=== PATIENT | male | born 1970 | race Caucasian/White ===

== ENCOUNTER 2018-05-17 20:45 | Inpatient (IN) | payer OTHER ==
[~2018-05-17] VITALS: Ht 182.9 cm; Wt 90.3 kg
--- NOTE | 2018-05-17 21:22 | ED GI/GU/ABDOMINAL COMPLAINT ---
History of Present Illness General Chief Complaint: Abdominal Pain/Flank Pain Stated Complaint: R SIDE PAIN Source: patient Exam Limitations: no limitations Vital Signs & Intake/Output Vital Signs & Intake/Output Vital Signs Date Time Temp Pulse Resp B/P B/P Pulse O2 O2 Flow FiO2 Mean Ox Delivery Rate 05/18 0152 97.5 125 18 178/90 92 05/18 0137 Room Air 05/18 0019 99.3 100 18 160/85 95 Room Air 05/17 2229 98.4 104 18 164/99 99 Room Air 05/17 2109 99.1 110 18 171/108 99 Room Air ED Intake and Output 05/18 0000 05/17 1200 Intake Total 1000 Output Total Balance 1000 Intake, IV 1000 Intake, Oral 0 Patient 200 lb Weight Weight Reported by Patient Measurement Method Allergies Coded Allergies: No Known Allergies (05/17/18) Triage Note: SEE NURSES NOTES Triage Nurses Notes Reviewed? yes Onset: Gradual Duration: constant Quality/Severity: aching, sharpness, severe Severity Numbers: 10 Location: epigastric Radiation: back HPI: Patient is a 47-year-old male with a past medical history of coronary artery disease myocardial infarction pancreatitis cervical arthritis who states that for the past month patient has been taking significant amounts of ibuprofen for his neck discomfort and pain patient states that last night he ate chicken and broccoli and this morning he woke up with gradual onset of persistent epigastric pain with radiation to the back and persistent nausea and vomiting. Patient is intolerant of by mouth intake. Last bowel movement was yesterday. Denies any significant alcohol use denies any fever but does have chills denies any chest pain arm pain jaw pain States pancreatitis is due to per history of cholesterol (Erick Mchugh) Reconcile Medications Amlodipine Besylate (Norvasc) (Unknown Strength) TABLET (Unknown Dose) PO DAILY BP (Reported) Aspirin (Ecotrin*) 81 MG TABLET.DR 1 TAB PO DAILY HEART/BLOOD (Reported) Carboxymethylcellulose Sodium (Lubricant Eye Drops) (Unknown Strength) DROPS ( Unknown Dose) OU AD PRN BOTH EYES (Reported) Cholecalciferol (Vitamin D3) (Vitamin D) (Unknown Strength) TABLET (Unknown Dose) PO DAILY SUPPLEMENT (Reported) Fenofibrate,Micronized (Fenofibrate) (Unknown Strength) CAPSULE (Unknown Dose) PO DAILY CHOLESTEROL/TRIGLYCERIDES (Reported) Ibuprofen 800 MG TABLET 1 TAB PO TID PAIN/INFLAMMATION (Reported) Lorazepam (Ativan) 0.5 MG TABLET (Unknown Dose) PO PRN ANXIETY (Reported) Metoprolol Succinate (Unknown Strength) TAB (Unknown Dose) PO DAILY HEART/BP (Reported) Olmesartan Medoxomil (Benicar) (Unknown Strength) TABLET (Unknown Dose) PO DAILY BP (Reported) Rosuvastatin Calcium (Crestor) (Unknown Strength) TABLET (Unknown Dose) PO DAILY CHOLESTEROL (Reported) (Sebastian Mcfarland MD) Past History Travel History Traveled to [place] past 21 day No Medical History Any Pertinent Medical History? see below for history Cardiovascular: CAD Gastrointestinal: pancreatitis Surgical History Surgical History: non-contributory Psychosocial History What is your primary language Icelandic Tobacco Use: Quit >30 days ago ETOH Use: denies use Illicit Drug Use: denies illicit drug use Family History Hx Contributory? No (Erick Mchugh) Review of Systems Review of Systems Constitutional: Reports: no symptoms. EENTM: Reports: no symptoms. Respiratory: Reports: no symptoms. Cardiovascular: Reports: no symptoms. GI: Reports: see HPI, abdominal pain. Genitourinary: Reports: no symptoms. Musculoskeletal: Reports: no symptoms. Skin: Reports: no symptoms. Neurological/Psychological: Reports: no symptoms. Hematologic/Endocrine: Reports: no symptoms. Immunologic/Allergic: Reports: no symptoms. All Other Systems: Reviewed and Negative (Erick Mchugh) Physical Exam Physical Exam General Appearance: moderate distress, DIAPHORETIC Head: atraumatic Eyes: Bilateral: normal appearance. Ears, Nose, Throat, Mouth: hearing grossly normal Neck: normal inspection Respiratory: normal breath sounds, chest non-tender, no respiratory distress Cardiovascular: tachycardia Gastrointestinal: soft, tenderness Extremities: normal range of motion Neurologic/Psych: no motor/sensory deficits, awake, alert Skin: intact, normal color, warm/dry Core Measures ACS in differential dx? No Sepsis Present: No Sepsis Focused Exam Completed? No (Erick Mchugh) Progress Differential Diagnosis: AAA, AMI, appendicitis, biliary colic, bowel obstruction , colon cancer, cholecystitis, diverticulitis, epididymitis, esophageal varices, gastritis, hepatitis, hernia, hemorrhoids, ischemic bowel, inflamm bowel dis, [place] tear, orchitis, pancreatitis, prostatitis, peptic ulcer, PUD/GERD, perforated viscous, pyelonephritis, SBO, testicular torsion, ureterolithiasis, urinary retention, urethritis, UTI/pyelo Plan of Care: Orders Procedure Date/time Status Nothing by Mouth 05/18 B Active CBC WITHOUT DIFFERENTIAL 05/18 06 Active BASIC ELECTROLYTES PLUS BUN&CR 05/18 06 Active Pathway - chart 05/18 0208 Active Pathway - chart 05/18 0205 Active Weight 05/18 0132 Complete Vital Signs 05/18 0132 Active Teach/Educate 05/18 013 Active Pain Treatment and Response 05/18 132 Active Nutritional Intake, Monitor 05/18 013 Active Isolation 05/18 0132 Active Intake & Output 05/18 0132 Active Patient Care Conference 05/182 Active Activity/Ambulation 05/18 132 Active BLOOD CULTURE 05/18 0026 Active LACTIC ACID 05/18 0022 Complete US-LIMITED ABDOMEN 05/18 UNK Active VTE Mechanical Prophylaxis 05/18 UNK Active Patient Data 05/17 2352 Active Add-on Test (ER Only) 05/17 2343 Active OXYGEN SETUP (GEN) 05/17 2338 Active Saline Lock 05/17 2338 Active Admit to inpatient 05/17 2338 Active Vital Signs 05/17 2338 Active Activity/Ambulation 05/17 2338 Active Code Status 05/17 2338 Active Add-on Test (ER Only) 05/17 2158 Active LIPID PANEL 05/17 2150 Complete ETHANOL 05/17 215 Complete TROPONIN LEVEL 05/17 2122 Complete LIPASE 05/17 212 Complete LACTIC ACID 05/17 2122 Complete COMPREHENSIVE METABOLIC PANEL 05/17 2122 Complete CBC WITHOUT DIFFERENTIAL 05/17 2122 Complete AMYLASE 05/17 2122 Complete Intake & Output 05/17 2111 Active EKG 05/17 2057 Active Current Medications Sig/Inge Start time Last Medication Dose Stop Time Status Admin Heparin Sodium 5,000 UNIT Q8 05/18 06 AC (Porcine) Hydromorphone HCl 0.5 MG Q4P PRN 05/18 0215 AC 05/18 (Dilaudid) 216 Lactated Ringer's 1,000 ML 200 MLS/HR 05/18 215 UNir (Lactated Ringers) 05/19 216 Morphine Sulfate 2 MG Q6P PRN 05/18 021 AC (Morphine) Laboratory Tests 05/18/18 0045: Lactic Acid 0.7 05/17/18 2150: Anion Gap 16, Estimated GFR > 60, BUN/Creatinine Ratio 21.4, Glucose 118 H, Lactic Acid 2.6 H, Calcium 10.4 H, Total Bilirubin 0.9, AST 199 H, ALT 234 H , Alkaline Phosphatase 98, Troponin I 0.01, Total Protein 7.4, Albumin 4.8, Globulin 2.6, Albumin/Globulin Ratio 1.8, Triglycerides 82, Cholesterol 248 H, LDL Cholesterol, Calc 151 H, HDL Cholesterol 81 H, Cholesterol/HDL Ratio 3, Amylase 376 H, Lipase 9711 H, CBC w Diff NO MAN DIFF REQ, RBC 4.96, MCV 94.1 H, MCH 31.5 H, MCHC 33.5, RDW 13.8, MPV 8.8, Gran % 87.3 H, Lymphocytes % 6.7 L, Monocytes % 5.0, Eosinophils % 0.8, Basophils % 0.2, Absolute Granulocytes 9.1 H, Absolute Lymphocytes 0.7 L, Absolute Monocytes 0.5, Absolute Eosinophils 0.1, Absolute Basophils 0, Serum Alcohol < 10.0 Microbiology 05/18 45 BLOOD: Blood Culture - RECD 05/18 35 BLOOD: Blood Culture - RECD Patient upon initial presentation was noted to be diaphoretic in distress patient was given multiple pain medications and nausea medications with mild relief of symptoms patient has concerning pancreatitis discussed admission with patient who agrees and has no questions. Blood work does identify the patient has elevated LFTs however CAT scan shows no concerns of cholecystitis or gallstones Patient denies any alcohol use Diagnostic Imaging: Viewed by Me: CT Scan. Radiology Impression: acute abnormality Initial ED EKG: normal p-waves, 106 BPM Comments: PATIENT: ALAN BYNUM PRESENT AGE: 47 PATIENT ACCOUNT NO: [id number] : 71 LOCATION: [facility] ORDERING PHYSICIAN: Erick BLACKBURN SERVICE DATE: 05/17/18 EXAM TYPE: CAT - CT ABD & PELVIS W IV CONTRAST EXAMINATION: CT ABDOMEN AND PELVIS WITH CONTRAST CLINICAL INFORMATION: Epigastric pain. Nausea, vomiting. COMPARISON: March 17, 2016. TECHNIQUE: Contiguous axial thin section helical images of the abdomen and pelvis were performed following the administration of 98 mL of intravenous Optiray 320. The data set was reformatted in the coronal and sagittal planes and reviewed on an independent workstation. DLP: 592 mGy-cm. FINDINGS: The visualized lung bases are clear. The visualized portions of the heart are unremarkable. The liver is of normal size and diffuse decreased attenuation without focal lesions nor intrahepatic biliary ductal dilation. A normal gallbladder is identified. There is no wall thickening or discernible pericholecystic fluid. The spleen and adrenal glands are unremarkable. The pancreas is edematous without demonstrable mass lesions or ductal dilation. There is marked peripancreatic stranding and a small amount of free fluid. This is not drainable. There are scattered peripancreatic lymph nodes that are not pathologically enlarged. Both kidneys are of normal size and attenuation without hydronephrosis or nephrolithiasis. There is a right extrarenal pelvis. Following the administration of IV contrast, prompt symmetric nephrograms are displayed. There is no abdominal free fluid. There is neither mesenteric nor retroperitoneal lymphadenopathy. Normal unopacified loops of small and large bowel are identified. A normal appendix is identified. There is no pelvic free fluid. The urinary bladder is unremarkable. There is neither pelvic nor inguinal lymphadenopathy. Bone windows: Neither sclerotic nor lytic bone lesions are identified. IMPRESSION: Edematous pancreas with adjacent fat stranding and free fluid with peripancreatic lymph nodes indicative of pancreatitis. No drainable fluid collections. No ductal calculi. Extensive hepatic steatosis. DICTATED BY: Fito Sebastian MD DATE/TIME DICTATED:05/17/182324 PLATE FURNACE OPERATOR:TABITHA (Erick Mchugh) Departure Departure Disposition: STILL A PATIENT Condition: Stable Clinical Impression Primary Impression: Pancreatitis Secondary Impressions: Transaminitis Referrals: Grzegorz Dumont MD (PCP/Family) Departure Forms: Customer Survey General Discharge Information Admission Note Spoke With: Amparo Vieira MD Documentation of Exam: Documentation of any treatments & extenuating circumstances including Concerns Regarding Discharge (functional status, medication knowledge or non-compliance, living conditions, etc.) that warrant an admission rather than observation: [ Patient requires gastroenterology consultation IV pain medications IV anti- emetics, repeat labs IV fluids ultrasound of the right upper quadrant] (Erick Mchugh) PA/SHINGLE WEAVER Co-Sign Statement Statement: ED Attending supervision documentation- x I saw and evaluated the patient. I have also reviewed all the pertinent lab results and diagnostic results. I agree with the findings and the plan of care as documented in the PA's/SHINGLE WEAVER's documentation. RUQ tenderness, pancreatitis [] I have reviewed the ED Record and agree with the PA's/SHINGLE WEAVER's documentation. [] Additions or exceptions (if any) to the PAs/SHINGLE WEAVER's note and plan are summarized below: [] (Bruna MICHELLE,Sebastian)
[2018-05-17] MEDS ORDERED: FENOFIBRATE134 M1 PO (21:45)
[2018-05-17] MEDS ORDERED: METOPROLOL SUCC25 M1 PO (21:45)
[2018-05-17] MEDS ORDERED: BENICAR20 M1 PO (21:45)
[2018-05-17] MEDS ORDERED: CRESTOR5 M1 PO (21:46)
[2018-05-17] MEDS ORDERED: ASPIRIN EC81 M1 PO (21:46)
[2018-05-17] MEDS ORDERED: NORVASC5 M1 PO (21:46)
[2018-05-17] MEDS ORDERED: IBUPROFEN800 M1 PO (21:47)
[2018-05-17] MEDS ORDERED: LUBRICANT EYE D15 ML OU (21:48)
[2018-05-17] MEDS ORDERED: VITAMIN D1000 UNIT PO (21:48)
[2018-05-17 22:01] LABS: ABSOLUTE BASOPHIL COUNT 0 /CUMM (0.0-0.2); ABSOLUTE EOSINOPHIL COUNT 0.1 /CUMM (0.0-0.7); ABSOLUTE GRANULOCYTE CT 9.1 /CUMM (1.4-6.5); ABSOLUTE LYMPH COUNT 0.7 /CUMM (1.2-3.4); ABSOLUTE MONOCYTE COUNT 0.5 /CUMM (0.10-0.60); BASOPHIL % 0.2 % (0.0-2.0); EOSINOPHIL % 0.8 % (0-5); HEMATOCRIT 46.7 % (42-52); MEAN CORPUSCULAR HGB 31.5 PG (27.0-31.0); MEAN CORPUSCULAR HGB CONC 33.5 G/DL (33.0-37.0); MEAN CORPUSCULAR VOLUME 94.1 FL (80.0-94.0); MEAN PLATELET VOLUME 8.8 FL (7.4-10.4); PLATELET COUNT 183 /CUMM (130-400); RBC DISTRIBUTION WIDTH 13.8 % (11.5-14.5); RED BLOOD CELL CT 4.96 /CUMM (4.70-6.10); WHITE BLOOD CELL COUNT 10.4 /CUMM (4.8-10.8)
[2018-05-17 22:25] LABS: GRANULOCYTE % 87.3 % (42.2-75.2)
--- NOTE | 2018-05-17 23:34 | CT SCAN REPORT ---
EXAMINATION: CT ABDOMEN AND PELVIS WITH CONTRAST CLINICAL INFORMATION: Epigastric pain. Nausea, vomiting. COMPARISON: March 17, 2016. TECHNIQUE: Contiguous axial thin section helical images of the abdomen and pelvis were performed following the administration of 98 mL of intravenous Optiray 320. The data set was reformatted in the coronal and sagittal planes and reviewed on an independent workstation. DLP: 592 mGy-cm. FINDINGS: The visualized lung bases are clear. The visualized portions of the heart are unremarkable. The liver is of normal size and diffuse decreased attenuation without focal lesions nor intrahepatic biliary ductal dilation. A normal gallbladder is identified. There is no wall thickening or discernible pericholecystic fluid. The spleen and adrenal glands are unremarkable. The pancreas is edematous without demonstrable mass lesions or ductal dilation. There is marked peripancreatic stranding and a small amount of free fluid. This is not drainable. There are scattered peripancreatic lymph nodes that are not pathologically enlarged. Both kidneys are of normal size and attenuation without hydronephrosis or nephrolithiasis. There is a right extrarenal pelvis. Following the administration of IV contrast, prompt symmetric nephrograms are displayed. There is no abdominal free fluid. There is neither mesenteric nor retroperitoneal lymphadenopathy. Normal unopacified loops of small and large bowel are identified. A normal appendix is identified. There is no pelvic free fluid. The urinary bladder is unremarkable. There is neither pelvic nor inguinal lymphadenopathy. Bone windows: Neither sclerotic nor lytic bone lesions are identified. IMPRESSION: Edematous pancreas with adjacent fat stranding and free fluid with peripancreatic lymph nodes indicative of pancreatitis. No drainable fluid collections. No ductal calculi. Extensive hepatic steatosis.
--- NOTE | 2018-05-17 23:57 | History & Physical ---
Yary Toney MD 05/17/18 2308: General Information and HPI MD Statement: I have seen and personally examined MISAALAN Halie CALDERON and documented this H&P. The patient is a 47 year old M who presented with a patient stated chief complaint of right abdominal and flank pain, nausea and vomiting Source of Information: patient, family Exam Limitations: no limitations History of Present Illness: This is a 47-year-old male with a past medical history significant for hypertension, coronary artery disease status post RI in 2016 with placement of one stent, medicine-induced pancreatitis 2 years ago, cervical arthritis that comes to see us for complaints of one days worth of right abdominal and flank pain. The patient states that when he woke up in the morning the abdominal pain started at 6 AM. The pain was sharp and in the right side, at the worst 10/10. He also stated that he had associated bloating. The previous night, he had eaten chicken and broccoli, nothing out of the norm for him. He had also had 2 slices of pizza late at night. In the morning he had one yogurt around the time that the pain began. At about 11:00, despite the pain, he had another 2 slices of pizza. He states that the pain radiates to the back. He also had associated nausea and vomiting and threw up 2 times at home. He denies any blood in the vomitus. He denies any diarrhea, states that he has not had a bowel movement since yesterday. He has had no appetite and has not eaten since the pizza at 11 AM. The patient states that he has been taking high-dose ibuprofen for neck pain for the past week, 800 mg 3 times a day which was prescribed from his primary care physician for his cervical arthritis. Additionally, the patient states that he was recently switched one month ago from rosuvastatin to atorvastatin. Patient states that he is supposed to have spinal surgery at some point soon. Patient denies any fever, chills, pain elsewhere in the body, dizziness, cough, lower extremity edema, dysuria. He denies chest pain but does admit to some palpitations that he had while waiting in the [facility] triage. The patient is a past smoker, quit in 2016, previously smoked 1 pack per day for 25 years. He denies any herbal medications, drugs, alcohol. He denies any travel or sick contacts. His PCP is Dr. German. Allergies/Medications Allergies: Coded Allergies: No Known Allergies (05/17/18) Compliance With Home Meds: GOOD Past History Travel History Traveled to [place] past 21 day No Medical History Cardiovascular: CAD Gastrointestinal: pancreatitis Surgical History Surgical History: non-contributory Past Family/Social History Family History Relations & Conditions if any Family history was reviewed; no changes noted. Psychosocial History Smoking Status: Former Smoker ETOH Use: denies use Illicit Drug Use: denies illicit drug use Review of Systems Review of Systems Constitutional: Reports: no symptoms. EENTM: Reports: no symptoms. Cardiovascular: Reports: palpitations. Respiratory: Reports: no symptoms. GI: Reports: abdominal pain, nausea, vomiting. Genitourinary: Reports: no symptoms. Musculoskeletal: Reports: neck pain. Skin: Reports: no symptoms. Hematologic/Endocrine: Reports: no symptoms. Immunologic/Allergic: Reports: no symptoms. Exam & Diagnostic Data Last 24 Hrs of Vital Signs/I&O Vital Signs Date Time Temp Pulse Resp B/P B/P Pulse O2 O2 Flow FiO2 Mean Ox Delivery Rate 05/18 0152 97.5 125 18 178/90 92 05/18 0137 Room Air 05/18 0019 99.3 100 18 160/85 95 Room Air 05/17 2229 98.4 104 18 164/99 99 Room Air 05/17 2109 99.1 110 18 171/108 99 Room Air Intake & Output 05/18 0800 05/18 0000 05/17 1600 Intake Total 1000 1000 Output Total Balance 1000 1000 Intake, IV 1000 1000 Intake, Oral 0 Patient 200 lb 200 lb Weight Weight Reported by Patient Reported by Patient Measurement Method Physical Exam General Appearance Alert, Oriented X3, Cooperative, No Acute Distress Skin No Rashes, No Breakdown, No Significant Lesion Skin Temp/Moisture Exam: Warm/Dry Sepsis Skin Exam (color): Normal for Ethnicity HEENT Atraumatic, PERRLA, EOMI, Mucous Membr. moist/pink Neck Supple, No JVD Cardiovascular Regular Rate, Normal S1, Normal S2, No Murmurs Lungs Clear to Auscultation, Normal Air Movement Abdomen Normal Bowel Sounds, Soft, No Hepatospenomegaly, No Masses, patient has pain on deep palpation Neurological Normal Speech Extremities No Clubbing, No Cyanosis, No Edema, Normal Pulses Vascular Normal Pulses, Pulses Symmetrical Last 24 Hrs of Labs/Scooter: Laboratory Tests 05/18/18 0310: Troponin I 0.02 05/18/18 0045: Lactic Acid 0.7 05/17/18 2150: Anion Gap 16, Estimated GFR > 60, BUN/Creatinine Ratio 21.4, Glucose 118 H, Lactic Acid 2.6 H, Calcium 10.4 H, Total Bilirubin 0.9, AST 199 H, ALT 234 H , Alkaline Phosphatase 98, Troponin I 0.01, Total Protein 7.4, Albumin 4.8, Globulin 2.6, Albumin/Globulin Ratio 1.8, Triglycerides 82, Cholesterol 248 H, LDL Cholesterol, Calc 151 H, HDL Cholesterol 81 H, Cholesterol/HDL Ratio 3, Amylase 376 H, Lipase 9711 H, CBC w Diff NO MAN DIFF REQ, RBC 4.96, MCV 94.1 H, MCH 31.5 H, MCHC 33.5, RDW 13.8, MPV 8.8, Gran % 87.3 H, Lymphocytes % 6.7 L, Monocytes % 5.0, Eosinophils % 0.8, Basophils % 0.2, Absolute Granulocytes 9.1 H, Absolute Lymphocytes 0.7 L, Absolute Monocytes 0.5, Absolute Eosinophils 0.1, Absolute Basophils 0, Serum Alcohol < 10.0 Microbiology 05/18 45 BLOOD: Blood Culture - RECD 05/18 35 BLOOD: Blood Culture - RECD Assessment/Plan Assessment: This is a 47-year-old male with a past medical history significant for hypertension, coronary artery disease status post RI in 2016 with placement of one stent, medicine-induced pancreatitis 2 years ago, cervical arthritis that comes to see us for complaints of one days worth of right abdominal and flank pain. Patient has not eaten anything out of the norm except for some pizza, has no sick contacts, no recent travel. The patient has recently been on high-dose ibuprofen and one month ago switched from rosuvastatin to atorvastatin. His previous bout of pancreatitis was from an unknown medication. The patient is a past smoker. In the ED, temperature 99.1, heart rate 110, respiratory rate 18, blood pressure 171/108 which decreased to 164/99, 98% oxygen saturation on room air. EKG showed rate of 104, Q waves in leads 2, 3, aVF, QTC 436. Labs showed WBC 10.4, hemoglobin 15.6, platelets 23, sodium 136, potassium 4.4, normal creatinine, calcium, negative troponin, AST 199, a LT 234, lactic acid 2.6 which decreased to 0.7 after fluids. Tox was negative for alcohol. Cholesterol was 248, LDL 151, HDL 81, amylase 376, lipase 9711. CT abdomen and pelvis showed hepatic steatosis, edematous pancreas with adjacent fat stranding and free fluid with peripancreatic lymph nodes, no fluid collection, no suggestion of necrotic areas. In the ED, patient received Phenergan, Zofran, Reglan for nausea, Dilaudid 1 mg Assessment -Abdominal pain and nausea/vomiting secondary to pancreatitis: This could be secondary to medication although his switch to a new statin was 1 month ago, possibility for statin-induced pancreatitis does exist. The patient does have elevated LFTs so possibility does exist for gallstone pancreatitis. However this is also unlikely as the patient's bilirubin is normal. She does have a history of hyperlipidemia which could be the cause of his pancreatitis. Patient 's calcium is normal. -Tachycardia with a history of RI status post stent placement: EKG showed old Q waves and no other abnormalities. However patient was found to have heart rate up to 125 with blood pressure of 170/90, no symptoms. Plan -Dehydration with Ringer's lactate at a rate of 200 mL per hour -Keep patient nothing by mouth -Right upper quadrant ultrasound given patient elevated LFTs. -Please confirm medications in the morning as patient does not know any of his doses. He takes aspirin, fenofibrate, metoprolol, Benicar, Crestor, amlodipine. -Given patient's tachycardia with a history of CAD we will trend troponins and EKGs, final set is at 8 AM -Pain control with Dilaudid and Zofran as the patient states that he gets nauseous on Dilaudid but that it helps -Follow up blood cultures Patient is full code Nothing by mouth DVT prophylaxis with heparin and Alps As Ranked By This Provider Problem List: 1. Pancreatitis 2. Transaminitis Core Measures/Misc (08/06) Acute Coronary Syndrome ACS Diagnosis: No Congestive Heart Failure Congestive Heart Failure Diagnosis No Cerebrovascular Accident CVA/TIA Diagnosis: No VTE (View Protocol) VTE Risk Factors Acute Medical Illness No Mechanical VTE Prophylaxis d/t N/A MechProphylax Ordered No VTE Pharm Prophylaxis d/t NA PharmProphylax ordered Sepsis (View protocol) Sepsis Present: No If YES complete Sepsis Event Note If YES complete Sepsis Event Note Marce López 05/18/18 0351: General Information and HPI Allergies/Medications Home Med list Amlodipine Besylate (Norvasc) (Unknown Strength) TABLET (Unknown Dose) PO DAILY BP (Reported) Aspirin (Ecotrin*) 81 MG TABLET.DR 1 TAB PO DAILY HEART/BLOOD (Reported) Carboxymethylcellulose Sodium (Lubricant Eye Drops) (Unknown Strength) DROPS ( Unknown Dose) OU AD PRN BOTH EYES (Reported) Cholecalciferol (Vitamin D3) (Vitamin D) (Unknown Strength) TABLET (Unknown Dose) PO DAILY SUPPLEMENT (Reported) Fenofibrate,Micronized (Fenofibrate) (Unknown Strength) CAPSULE (Unknown Dose) PO DAILY CHOLESTEROL/TRIGLYCERIDES (Reported) Ibuprofen 800 MG TABLET 1 TAB PO TID PAIN/INFLAMMATION (Reported) Lorazepam (Ativan) 0.5 MG TABLET (Unknown Dose) PO PRN ANXIETY (Reported) Metoprolol Succinate (Unknown Strength) TAB (Unknown Dose) PO DAILY HEART/BP (Reported) Olmesartan Medoxomil (Benicar) (Unknown Strength) TABLET (Unknown Dose) PO DAILY BP (Reported) Rosuvastatin Calcium (Crestor) (Unknown Strength) TABLET (Unknown Dose) PO DAILY CHOLESTEROL (Reported) Core Measures/Misc (08/06) Sepsis (View protocol) If YES complete Sepsis Event Note If YES complete Sepsis Event Note Resident Review Statement Resident Statement: discussed with risk management intern, agreed with risk management intern Other Findings: Patient is 47-year-old male with past medical history of medication-induced pancreatitis 2 years ago, heart attack in 2015 status post stent, came with a chief complaint of abdominal pain that started 6 AM this morning. Patient states that the abdominal pain is epigastric and in right upper quadrant, 10/10 at worse, 7/10 after the pain meds given in ER, sharp in nature, nonradiating. Patient reports that he was taking 800 mg of ibuprofen for and 3 times a day for spinal pain, and he was switched from atorvastatin to Crestor. Patient reports that the abdominal pain is accompanied by nausea and vomiting. He also reported of having palpitations earlier today. Patient states that his appetite has been normal, and he had this of this morning around 11 AM. Labs and vitals as above. Of note lipase is 9711. CT abdomen and pelvis done in ER Edematous pancreas with adjacent fat stranding and free fluid with peripancreatic lymph nodes indicative of pancreatitis. No drainable fluid collections. No ductal calculi. Assessment and plan We'll monitor the patient on general medicine floor, IV hydration with Ringer's lactate, nothing by mouth for now, right upper quadrant ultrasound in morning given his elevated LFTs. Patient does not remember the exact dosage of his medications, please confirm CMR in morning. Given his palpitations, and cardiac history, will trend troponins and EKG. One set of troponin is negative. If symptoms do not improve, consider GI morning. DVT prophylaxis subcutaneous heparin. CBC/BP in morning. Will repeat LFTs. Pain management with morphine, and hydromorphone. Patient is full code. Amparo Vieira 05/18/18 0510: Core Measures/Misc (08/06) Sepsis (View protocol) If YES complete Sepsis Event Note If YES complete Sepsis Event Note Attending MD Review Statement Attending Statement Attending MD Statement: examined this patient, discuss w/resident/PA/SUPERVISOR [employer], agreed w/resident/PA/SUPERVIS[employer], discussed with family, reviewed EMR data (avail), reviewed images, amended to note Attending Assessment/Plan: CC: Abdominal pain PMH: CAD S/P RI S/P PCI to year back, HTN, history of pancreatitis 2 years back, cervical arthritis Patient came to ER for severe abdominal pain, in epigastric area, nonradiating, 10 over 10, sharp, associated with nausea and dry heaving, no aggravating or relieving factors. Patient had history of pancreatitis in the past, this pain was similar to that. He denies any recent changes in medication except starting Crestor., Denies any history of extremely high triglycerides, alcohol, CVS history of pancreatitis was attributed to medication, probably statin but unclear. Otherwise complete ROS unremarkable. Vitals: Temperature 99.1, pulse 110, RR 18, blood pressure 171/108, saturating 99% on room air. On exam: A O 3, cooperative, no acute distress, neck supple, face flushed, JVD normal, no lymphadenopathy, mucosa moist, no focal neurological deficit, no dependent edema, no obvious skin rashes or inflammation CVS: S1-S2, RRR. RS: Clear to auscultate bilaterally. Abdomen: Soft, epigastric tenderness, Trammell's sign negative, abdomen distended, bowel sounds decreased CT abdomen pelvis with IV contrast: Edematous pancreas with adjacent fat stranding and free fluid with peripancreatic lymph nodes indicative of pancreatitis. No drainable fluid collections. No ductal calculi. Extensive hepatic steatosis. Assessment and plan 47-year-old male with past medical history significant for CAD S/P RI S/P stent, HTN and history of pancreatitis presented in ER for epigastric pain that started this morning associated with nausea and dry heaving. On investigations his fontanelle have elevated lipase and CT scan suggestive of pancreatitis. Etiology is unclear at this point given this is all called level is negative, triglyceride negative. Given his transaminitis gallstones should be ruled out. Recent medication change Crestor may be controverted but unclear. Patient states that he was recently told that he has fatty liver and his liver enzymes were mildly elevated but does not remember the numbers. + Acute pancreatitis + Lactic acidosis + Transaminitis - Admit to general medicine - Continue aggressive hydration with Ringer's lactate at 200 mL per hour for 2 more liters - Check right upper quadrant ultrasound - check CRP for 3 days as prognostic indicator - Check magnesium and phosphorus, replace if low - Adequate pain control - Check LFT in a.m. - Hold Crestor, confirmed all his medications in a.m. and restart - Nothing by mouth until right upper quadrant ultrasound then advance clears - DVT prophylaxis
[2018-05-18] VITALS (7 sets, daily range): BP systolic 142–178; BP diastolic 90–115
[2018-05-18] MEDS ORDERED: ATIVAN0.5 M1 PO (01:18)
--- NOTE | 2018-05-18 05:11 | Admission Certification ---
Admission Certification Certification Statement - As attending physician, I certify that at the time of - admission, based on clinical presentation, severity of - symptoms, need for further diagnostic testing and - therapeutic interventions, and risk of adverse outcomes - without in-hospital treatment, in my clinical assessment, - this patient requires an acute hospital stay for a minimum - of two nights or longer. I have also considered psychsocial - factors such as support system, advanced age, financial - issues, cognitive issues, and failed out-patient treatments, - past re-admission history, safety of patient, and lack of - compliance as applicable. Specific rationale supporting this admission is: acute pancreatitis
--- NOTE | 2018-05-18 07:48 | PN- Housestaff ---
Subjective Follow-up For: Pancreatitis Subjective: patient is complaining of severe abdominal pain despite opioid analgesics NPO, on lactated ringers afebrile Review of Systems Constitutional: Reports: see HPI. Objective Last 24 Hrs of Vital Signs/I&O Vital Signs Date Time Temp Pulse Resp B/P B/P Pulse O2 O2 Flow FiO2 Mean Ox Delivery Rate 05/18 0901 107 160/104 05/18 0720 102 05/18 0641 98.2 130 18 172/115 98 05/18 0637 105 153/109 05/18 0545 130 171/115 05/18 0152 97.5 125 18 178/90 92 05/18 0137 Room Air 05/18 0019 99.3 100 18 160/85 95 Room Air 05/17 2229 98.4 104 18 164/99 99 Room Air 05/17 2109 99.1 110 18 171/108 99 Room Air Intake & Output 05/18 1600 05/18 0800 05/18 0000 Intake Total 2200 1000 Output Total 600 Balance 1600 1000 Intake, IV 2200 1000 Intake, Oral 0 0 Output, Urine 600 Patient 90.718 kg 90.718 kg Weight Weight Reported by Patient Reported by Patient Measurement Method Physical Exam General Appearance: Alert, Oriented X3, Cooperative, No Acute Distress HEENT: dry mucous membranes Cardiovascular: Normal S1, Normal S2, No Murmurs, tachycardic Lungs: Clear to Auscultation, Normal Air Movement Abdomen: Normal Bowel Sounds, Soft, No Tenderness, No Masses, distended but soft moderate tenderness to palpation RUQ/epigastric area without guarding Extremities: No Clubbing, No Cyanosis, No Edema, Normal Pulses Current Medications: Current Medications Sig/Inge Start time Last Medication Dose Route Stop Time Status Admin Amlodipine Besylate 10 MG DAILY 05/19 900 AC PO Amlodipine Besylate 5 MG ONCE ONE 05/18 845 DC PO 05/18 0846 Amlodipine Besylate 5 MG ONCE ONE 05/18 0545 DC 05/18 PO 05/18 0546 0637 Aspirin 81 MG DAILY 05/18 09 AC 05/18 PO 0828 Heparin Sodium 5,000 UNIT Q8 05/18 600 AC 05/18 (Porcine) SC 0530 Hydromorphone HCl 1 MG ONCE ONE 05/18 0815 DC 05/18 IV 05/18 0816 0822 Hydromorphone HCl 0.5 MG Q4P PRN 05/18 0215 AC 05/18 IV 0601 Hydromorphone HCl 1 MG ONCE ONE 05/18 0015 DC 05/18 IV 05/18 0016 0015 Hydromorphone HCl 0 .STK-MED ONE 05/18 0011 DC .ROUTE Ketorolac 0 .STK-MED ONE 05/17 2334 DC Tromethamine .ROUTE Ketorolac 30 MG ONCE ONE 05/17 2330 DC 05/17 Tromethamine IV 05/17 2331 2340 Lactated Ringer's 1,000 ML 200 MLS/HR 05/18 0215 AC 05/18 IV 05/19 0216 0924 Lorazepam 0.25 MG TID 05/18 0901 AC PO 05/25 0900 Lorazepam 1 MG ONE ONE 05/18 0815 DC 05/18 PO 05/18 0816 0822 Losartan Potassium 100 MG DAILY 05/18 0900 AC PO Metoclopramide HCl 0 .STK-MED ONE 05/17 2334 DC .ROUTE Metoclopramide HCl 10 MG ONCE ONE 05/17 2330 DC 05/17 IV 05/17 2331 2340 Metoprolol Tartrate 50 MG BID 05/18 0900 AC PO Metoprolol Tartrate 5 MG ONCE ONE 05/18 0530 DC 05/18 IV 05/18 0531 0545 Morphine Sulfate 2 MG Q6P PRN 05/18 0300 AC 05/18 IV 0251 Morphine Sulfate 2 MG Q6P PRN 05/18 0215 DC IV Morphine Sulfate 0 .STK-MED ONE 05/17 2247 DC .ROUTE Morphine Sulfate 2 MG ONCE ONE 05/17 2245 DC 05/17 IV 05/17 2246 2250 Morphine Sulfate 0 .STK-MED ONE 05/17 2155 DC .ROUTE Morphine Sulfate 6 MG ONCE ONE 05/17 2145 DC 05/17 IV 05/17 2146 2159 Ondansetron HCl 4 MG ONCE ONE 05/18 0245 DC 05/18 PO 05/18 0246 0242 Ondansetron HCl 4 MG ONCE ONE 05/17 2145 DC 05/17 IV 05/17 2146 2153 Ondansetron HCl 0 .STK-MED ONE 05/17 2143 DC .ROUTE Promethazine HCl 25 MG ONCE ONE 05/18 0530 DC 05/18 IV 05/18 0531 0524 Promethazine HCl 25 MG ONCE ONE 05/18 0015 DC 05/18 IV 05/18 0016 0015 Promethazine HCl 0 .STK-MED ONE 05/18 0011 DC .ROUTE Sodium Chloride 1,000 ML BOLUS ONE 05/17 2330 DC 05/17 IV 05/18 0029 2323 Sodium Chloride 1,000 ML BOLUS ONE 05/17 2315 DC 05/18 IV 05/18 0014 0104 Sodium Chloride 1,000 ML BOLUS ONE 05/17 2145 DC 05/17 IV 05/17 2244 2153 Last 24 Hrs of Lab/Scooter Results Last 24 Hrs of Labs/Mics: Laboratory Tests 05/18/18 0732: Troponin I 0.02 05/18/18 0732: Anion Gap 10, Estimated GFR > 60, BUN/Creatinine Ratio 16.3, CBC w Diff Pending, WBC Pending, RBC Pending, Hgb Pending, Hct Pending, MCV Pending, MCH Pending, MCHC Pending, RDW Pending, Plt Count Pending, MPV Pending 05/18/18 0310: Troponin I 0.02 05/18/18 0045: Lactic Acid 0.7 05/17/182149: Anion Gap 16, Estimated GFR > 60, BUN/Creatinine Ratio 21.4, Glucose 118 H, Lactic Acid 2.6 H, Calcium 10.4 H, Total Bilirubin 0.9, AST 199 H, ALT 234 H , Alkaline Phosphatase 98, Troponin I 0.01, Total Protein 7.4, Albumin 4.8, Globulin 2.6, Albumin/Globulin Ratio 1.8, Triglycerides 82, Cholesterol 248 H, LDL Cholesterol, Calc 151 H, HDL Cholesterol 81 H, Cholesterol/HDL Ratio 3, Amylase 376 H, Lipase 9711 H, CBC w Diff NO MAN DIFF REQ, RBC 4.96, MCV 94.1 H, MCH 31.5 H, MCHC 33.5, RDW 13.8, MPV 8.8, Gran % 87.3 H, Lymphocytes % 6.7 L, Monocytes % 5.0, Eosinophils % 0.8, Basophils % 0.2, Absolute Granulocytes 9.1 H, Absolute Lymphocytes 0.7 L, Absolute Monocytes 0.5, Absolute Eosinophils 0.1, Absolute Basophils 0, Serum Alcohol < 10.0 Microbiology 05/18 45 BLOOD: Blood Culture - RECD 05/18 35 BLOOD: Blood Culture - RECD Assessment/Plan Assessment: 47 year old male with a past medical history significant for former smoker, current social EtOH, HTN, CAD/PA s/p PCI with RCA stent 09/2016, pancreatitis 2 years ago thought to be medication related (atorvastatin?), presented with acute onset right sided abdominal pain. Patient is tachycardic and hypertensive with HR > 110 and DBP > 110 Acute pancreatitis: Unclear etiology, triglycerides normal, EtOH negative on presentation new statin was 1 month ago? Lactic acidemia on presentation 2.6, normal on follow up after fluid resuscitation Transaminitis without bilirubinemia, check RUQ U/S to evaluate for gallstone pancreatitis Trend LFTs, AST 199, ALT 234 NPO, continue LR 200cc/hr, trend hematocrit and BUN for any rise BUN 15->13, HCT 46.7 Analgesia with hydromorphone Zofran for nausea Gastroenterology consultation for unclear etiology, second episode of pancreatitis CT abdomen and pelvis showed hepatic steatosis, edematous pancreas with adjacent fat stranding and free fluid with peripancreatic lymph nodes, no fluid collection, no necrotic areas. CAD/PA/HTN: inferior q waves on EKG Continue aspirin, beta aylin, ARB, and norvasc Statin was held Sinus tachycardia with three negative troponins NPO DVT ppx-ALPs, heparin sc Full code Problem List: 1. Transaminitis 2. Pancreatitis Pain Ratin Pain Location: RUQ Pain Goal: Pain 4 or less Pain Plan: dilaudid Tomorrow's Labs & Rationales: cbc, bep, lfts Nothing by mouth DVT prophylaxis with heparin and Alps
[2018-05-18 08:26] LABS: ABSOLUTE BASOPHIL COUNT 0 /CUMM (0.0-0.2); ABSOLUTE EOSINOPHIL COUNT 0.1 /CUMM (0.0-0.7); ABSOLUTE GRANULOCYTE CT 7.7 /CUMM (1.4-6.5); ABSOLUTE LYMPH COUNT 0.5 /CUMM (1.2-3.4); ABSOLUTE MONOCYTE COUNT 0.6 /CUMM (0.10-0.60); BASOPHIL % 0.1 % (0.0-2.0); EOSINOPHIL % 1.6 % (0-5); HEMATOCRIT 42.6 % (42-52); MEAN CORPUSCULAR HGB 32.1 PG (27.0-31.0); MEAN CORPUSCULAR HGB CONC 34.1 G/DL (33.0-37.0); MEAN CORPUSCULAR VOLUME 94.1 FL (80.0-94.0); MEAN PLATELET VOLUME 9.3 FL (7.4-10.4); PLATELET COUNT 145 /CUMM (130-400); RBC DISTRIBUTION WIDTH 14.2 % (11.5-14.5); RED BLOOD CELL CT 4.53 /CUMM (4.70-6.10)
--- NOTE | 2018-05-18 09:53 | PN- Att Addend ---
Attending Addendum Attending Brief Note Patient seen and examined. Agree with architect intern's note. This is a 47-year-old male with past medical history of coronary artery disease status post [place] and stenting, hypertension and hyperlipidemia with previous pancreatitis 2 years ago. He is here with what appears to be recurrent pancreatitis. He has the abdominal pain and the CT that shows edematous pancreas. The etiology is unclear. There is no obvious alcohol use, the CT was negative for any gallstones and his triglycerides are normal. The possibility of medication- induced pancreatitis certainly has to be entertained. He still in considerable amount of pain, his transaminases are going up and he scheduled for an ultrasound today. We'll restart all of his cardiac medications including his beta aylin, juan inhibitor and his Norvasc. He is on IV lactated Ringer's at 200 and hour with IV Dilaudid when necessary. Will call a formal GI consultation as this is the second episode of pancreatitis and we don't have a clear etiology.
--- NOTE | 2018-05-18 12:41 | ULTRASOUND REPORT ---
EXAMINATION: US ABDOMEN LIMITED CLINICAL INFORMATION: Abdominal discomfort. Evaluate for gallstones. COMPARISON: CT scan of the abdomen and pelvis 05/17/2018. TECHNIQUE: Real-time imaging of the right upper quadrant abdominal viscera. FINDINGS: PANCREAS: The pancreas is suboptimally visualized due to overlying bowel gas. No peripancreatic fluid collections are demonstrated. LIVER: The liver is slightly enlarged, measuring 19.5 cm. It has normal contour . It has diffusely increased echogenicity consistent with hepatic steatosis. No focal lesion or intrahepatic biliary duct dilatation. GALLBLADDER: The gallbladder is physiologically distended without evidence of stones, sludge, polyps, wall thickening or pericholecystic fluid. The patient was not tender in the right upper quadrant. COMMON BILE DUCT: Normal in caliber measuring 0.3 cm in diameter. RIGHT KIDNEY: There is no hydronephrosis. No renal calculi or focal parenchymal lesions. The kidney measures 12.6 cm in maximum dimension. FREE FLUID: There is trace fluid medial to the liver and posterior to the gallbladder. IMPRESSION: 1. There is no cholelithiasis, and there is no evidence of intrahepatic duct or CBD dilatation. There is no evidence of acute cholecystitis. 2. There is diffuse hepatic steatosis and mild hepatomegaly. 3. There is trace ascites. 4. There is limited evaluation of the pancreas on this study.
--- NOTE | 2018-05-18 13:04 | Cons- Gastroenterology ---
General Information and HPI Consulting Request Date of Consult: 05/18/18 Requested By: Vishnu MICHELLE,Nithin Shepherd Reason for Consult: 1. Acute on Chronic Pancreatitis 2. History of Alcohol Abuse 3. Abdominal Pain 4. History of Pancreatic Insufficiency Source of Information: patient, Electronic Medical Record including Notes from Deborah Exam Limitations: no limitations History of Present Illness: Mr. Preston Hernandez is a 47 year old male with a past medical history significant for alcohol abuse. He is well-known to my partner, Dr. Patrick Sanchez. Patrick Sanchez MD had seen him in 2016 for evaluation of diarrhea, pancreatic insufficiency, abnormal liver enzymes, and an abnormal ferritin. He also underwent evaluation by hematology for an elevated ferritin, and hemochromatosis was ruled out. At that time he had a liver biopsy that showed moderate to severe fatty liver with mild steatohepatitis. There was no fibrosis or cirrhosis. Mr. Hernandez also claimed that there was no ongoing alcohol abuse and that he only consumed 1 or 2 drinks nightly however his MCV was 105.8. On ultrasound he had an echogenic liver. He also had signs of malabsorption related to pancreatic insufficiency. He had an abnormal pancreatic elastase and had malabsorption of fat soluble vitamins. He was treated with ZenPep for diarrhea felt to be related to pancreatic insufficiency. He was also referred to [facility] for an EUS to evaluate the pancreas which was never done. Laboratory studies were ordered to rule out autoimmune causes of hepatitis which were all negative. Laboratory studies were also ordered to rule out autoimmune pancreatitis; these were not completed. Patient is now admitted to [facility] for upper abdominal pain which has been attributed to acute pancreatitis. He reports that he was told at [facility] that his pancreatitis was due to statins, however, per Dr. Sanchez's report, he was told that his chronic elevation in liver-associated enzymes was due to statins. On admission, Mr. Hernandez had a CT Scan of the abdomen, the results of which are as follows: FINDINGS: The visualized lung bases are clear. The visualized portions of the heart are unremarkable. The liver is of normal size and diffuse decreased attenuation without focal lesions nor intrahepatic biliary ductal dilation. A normal gallbladder is identified. There is no wall thickening or discernible pericholecystic fluid. The spleen and adrenal glands are unremarkable. The pancreas is edematous without demonstrable mass lesions or ductal dilation. There is marked peripancreatic stranding and a small amount of free fluid. This is not drainable. There are scattered peripancreatic lymph nodes that are not pathologically enlarged. Both kidneys are of normal size and attenuation without hydronephrosis or nephrolithiasis. There is a right extrarenal pelvis. Following the administration of IV contrast, prompt symmetric nephrograms are displayed. There is no abdominal free fluid. There is neither mesenteric nor retroperitoneal lymphadenopathy. Normal unopacified loops of small and large bowel are identified. A normal appendix is identified. There is no pelvic free fluid. The urinary bladder is unremarkable. There is neither pelvic nor inguinal lymphadenopathy. Bone windows: Neither sclerotic nor lytic bone lesions are identified. IMPRESSION: Edematous pancreas with adjacent fat stranding and free fluid with peripancreatic lymph nodes indicative of pancreatitis. No drainable fluid collections. No ductal calculi. Extensive hepatic steatosis. Allergies/Medications Allergies: Coded Allergies: No Known Allergies (05/17/18) Home Med List: Amlodipine Besylate (Norvasc) 10 MG TABLET 1 TAB PO DAILY HTN (Reported) Aspirin (Ecotrin*) 81 MG TABLET.DR 1 TAB PO DAILY HEART/BLOOD (Reported) Carboxymethylcellulose Sodium (Lubricant Eye Drops) (Unknown Strength) DROPS ( Unknown Dose) OU AD PRN BOTH EYES (Reported) Cholecalciferol (Vitamin D3) (Vitamin D) (Unknown Strength) TABLET (Unknown Dose) PO DAILY SUPPLEMENT (Reported) Fenofibrate Nanocrystallized (Fenofibrate) 48 MG TABLET 1 TAB PO DAILY TRIGLYCERIDES (Reported) Ibuprofen 800 MG TABLET 1 TAB PO TID PAIN/INFLAMMATION (Reported) Lorazepam (Ativan) 0.5 MG TABLET 0.5 TAB PO TID anxiety (Reported) Metoprolol Succ XL (Toprol XL) 100 MG TAB.ER.24H 1 TAB PO DAILY CAD (Reported ) Olmesartan Medoxomil (Benicar) 40 MG TABLET 1 TAB PO DAILY HTN (Reported) Rosuvastatin Calcium (Crestor) 20 MG TABLET 1 TAB PO DAILY HLD (Reported) Past History Travel History Traveled to [place] past 21 day No Medical History Blood Transfusion Hx: No Cardiovascular: CAD, S/P Stent Placement (non-eluting) 2014 Gastrointestinal: pancreatitis, Hepatic Steatosis Surgical History Surgical History: non-contributory Psychosocial History Where Do You Live? Home Services at Home: None Smoking Status: Former Smoker ETOH Use: denies use Illicit Drug Use: denies illicit drug use Exam & Diagnostic Data Vital Signs and I&O Vital Signs Date Time Temp Pulse Resp B/P B/P Pulse O2 O2 Flow FiO2 Mean Ox Delivery Rate 05/18 1209 134 160/100 05/18 1208 134 160/100 05/18 1208 134 160/100 05/18 1202 98.2 134 20 160/100 97 Room Air 05/18 0901 107 160/104 05/18 0720 102 05/18 0641 98.2 130 18 172/115 98 05/18 0637 105 153/109 05/18 0545 130 171/115 05/18 0152 97.5 125 18 178/90 92 05/18 0137 Room Air 05/18 0019 99.3 100 18 160/85 95 Room Air 05/17 2229 98.4 104 18 164/99 99 Room Air 05/17 2109 99.1 110 18 171/108 99 Room Air Intake & Output 05/18 1600 05/18 0400 05/17 1600 05/17 0400 05/16 1600 05/16 0400 Intake Total 1200 2000 Output Total 600 Balance 600 2000 Intake, IV 1200 2000 Intake, Oral 0 0 Output, Urine 600 Patient 200 lb Weight Weight Reported by Patient Measurement Method Physical Exam General Appearance: well developed/nourished, moderate distress Head: atraumatic, normal appearance Eyes: Bilateral: normal appearance. Ears, Nose, Throat: hearing grossly normal Neck: normal inspection Respiratory: normal breath sounds, lungs clear Cardiovascular: regular rate/rhythm Gastrointestinal: normal bowel sounds, distention, Normal S1 and S2 without rub, murmur or gallop Extremities: no edema Neurologic/Psych: no motor/sensory deficits, awake, alert, oriented x 3 Cranial Nerves: cranial nerves II-XII grossly intact Results Pertinent Lab Results: Laboratory Tests 05/18 05/18 05/18 05/18 0800 0732 0732 0310 Chemistry Sodium (137 - 145 mmol/L) 139 Potassium (3.5 - 5.1 mmol/L) 4.6 Chloride (98 - 107 mmol/L) 104 Carbon Dioxide (22 - 30 mmol/L) 25 Anion Gap (5 - 16) 10 BUN (9 - 20 mg/dL) 13 Creatinine (0.7 - 1.2 mg/dL) 0.8 Estimated GFR (>60 ml/min) > 60 BUN/Creatinine Ratio (7 - 25 %) 16.3 Total Bilirubin (0.2 - 1.3 mg/dL) 0.7 Direct Bilirubin (< 0.4 mg/dL) 0.3 AST (17 - 59 U/L) 141 H ALT (21 - 72 U/L) 163 H Alkaline Phosphatase (< 127 U/L) 76 Creatine Kinase (55 - 170 U/L) 240 H Troponin I (<0.11 ng/ml) 0.02 0.02 Total Protein (6.3 - 8.2 g/dL) 6.0 L Albumin (3.5 - 5.0 g/dL) 3.7 Hematology CBC w Diff NO MAN DIFF REQ WBC (4.8 - 10.8 /CUMM) 9.0 RBC (4.70 - 6.10 /CUMM) 4.53 L Hgb (14.0 - 18.0 G/DL) 14.5 Hct (42 - 52 %) 42.6 MCV (80.0 - 94.0 FL) 94.1 H MCH (27.0 - 31.0 PG) 32.1 H MCHC (33.0 - 37.0 G/DL) 34.1 RDW (11.5 - 14.5 %) 14.2 Plt Count (130 - 400 /CUMM) 145 MPV (7.4 - 10.4 FL) 9.3 Gran % (42.2 - 75.2 %) 86.0 H Lymphocytes % (20.5 - 51.1 %) 5.4 L Monocytes % (1.7 - 9.3 %) 6.9 Eosinophils % (0 - 5 %) 1.6 Basophils % (0.0 - 2.0 %) 0.1 Absolute Granulocytes (1.4 - 6.5 /CUMM) 7.7 H Absolute Lymphocytes (1.2 - 3.4 /CUMM) 0.5 L Absolute Monocytes (0.10 - 0.60 /CUMM) 0.6 Absolute Eosinophils (0.0 - 0.7 /CUMM) 0.1 Absolute Basophils (0.0 - 0.2 /CUMM) 0 Immunology IgG Total Pending IgG1 Pending IgG2 Pending IgG3 Pending IgG4 Pending 05/18 05/17 3383 4330 Chemistry Sodium (137 - 145 mmol/L) 136 L Potassium (3.5 - 5.1 mmol/L) 4.4 Chloride (98 - 107 mmol/L) 98 Carbon Dioxide (22 - 30 mmol/L) 22 Anion Gap (5 - 16) 16 BUN (9 - 20 mg/dL) 15 Creatinine (0.7 - 1.2 mg/dL) 0.7 Estimated GFR (>60 ml/min) > 60 BUN/Creatinine Ratio (7 - 25 %) 21.4 Glucose (65 - 99 mg/dL) 118 H Lactic Acid (0.7 - 2.1 mmol/L) 0.7 2.6 H Calcium (8.4 - 10.2 mg/dL) 10.4 H Total Bilirubin (0.2 - 1.3 mg/dL) 0.9 AST (17 - 59 U/L) 199 H ALT (21 - 72 U/L) 234 H Alkaline Phosphatase (< 127 U/L) 98 Troponin I (<0.11 ng/ml) 0.01 Total Protein (6.3 - 8.2 g/dL) 7.4 Albumin (3.5 - 5.0 g/dL) 4.8 Globulin (1.9 - 4.2 gm/dL) 2.6 Albumin/Globulin Ratio (1.1 - 2.2 %) 1.8 Triglycerides (<150 mg/dL) 82 Cholesterol (< 200 MG/DL) 248 H LDL Cholesterol, Calc (65 - 129 mg/dL) 151 H HDL Cholesterol (40 - 60 mg/dL) 81 H Cholesterol/HDL Ratio (0.00 - 4.88 %) 3 Amylase (30 - 110 U/L) 376 H Lipase (23 - 300 U/L) 9711 H Hematology CBC w Diff NO MAN DIFF REQ WBC (4.8 - 10.8 /CUMM) 10.4 RBC (4.70 - 6.10 /CUMM) 4.96 Hgb (14.0 - 18.0 G/DL) 15.6 Hct (42 - 52 %) 46.7 MCV (80.0 - 94.0 FL) 94.1 H MCH (27.0 - 31.0 PG) 31.5 H MCHC (33.0 - 37.0 G/DL) 33.5 RDW (11.5 - 14.5 %) 13.8 Plt Count (130 - 400 /CUMM) 183 MPV (7.4 - 10.4 FL) 8.8 Gran % (42.2 - 75.2 %) 87.3 H Lymphocytes % (20.5 - 51.1 %) 6.7 L Monocytes % (1.7 - 9.3 %) 5.0 Eosinophils % (0 - 5 %) 0.8 Basophils % (0.0 - 2.0 %) 0.2 Absolute Granulocytes (1.4 - 6.5 /CUMM) 9.1 H Absolute Lymphocytes (1.2 - 3.4 /CUMM) 0.7 L Absolute Monocytes (0.10 - 0.60 /CUMM) 0.5 Absolute Eosinophils (0.0 - 0.7 /CUMM) 0.1 Absolute Basophils (0.0 - 0.2 /CUMM) 0 Toxicology Serum Alcohol (<10 MG/DL) < 10.0 Assessment/Plan Assessment/Recommendations: ASSESSMENT: 1. Acute Pancreatitis -- ? etiology. No triglycerides were ordered. Patient reports that this is only his second attack of pancreatitis. He also reports that he has had an EUS but is not sure of the results. 2. Hypertriglyceridemia 3. Abnormal Liver-Associated Enzymes, Elevated Transaminases. This has been a chronic problem for Mr. Hernandez and is likely related to Metabolic Syndrome / NAFLD which I have discussed with him. 4. Abdominal Pain. Poorly controlled on current doses of dilaudid. Would increase from 1 mg to 2 mg every 3-4 hours and if necessary decrease the interval. RECOMMENDATIONS: 1. HIDA Scan with CCK 2. Strict I/O to monitor urine output 3. Increase IV fluids. Patient has not had a substantial decrease in either his H/H or BUN/Cr which suggests that he has not been adequately hydrated. 4. Monitor CBC, CMP daily. 5. Patient may have recurrent pancreatitis on the basis of biliary microcrystals. May consider empiric cholecystectomy 6. Get records from [facility] 7. Consider ruling out autoimmune pancreatitis with serologies such as CFTR, SPINK, and PRSS1 if they have not already been done. 8. Await IgG4 Consult Acknowledgment - Thank you for your consult request.
[2018-05-18] MEDS ORDERED: NORVASC10 M1 PO (14:14)
[2018-05-18] MEDS ORDERED: CRESTOR20 M2 PO (14:15)
[2018-05-18] MEDS ORDERED: TOPROL XL100 M1 PO (14:15)
[2018-05-18] MEDS ORDERED: FENOFIBRATE48 M1 PO (14:17)
[2018-05-18] MEDS ORDERED: BENICAR40 M1 PO (14:18)
--- NOTE | 2018-05-18 15:52 | PN- Student ---
Subjective Subjective: Student H&P Source: Patient & Records Reliability: Good HPI: Mr. Hernandez is a 47 YOM who presented to the ER with abdominal pain plus N/V. The pain began suddenly that morning as a sharp 10/10 stabbing pain in his right upper quadrant after he had yogurt for breakfast. The pain radiated to his back/ flank, and it was unremitting. Over the course of the day he began to feel bloated and increasingly nauseous, and he had two episodes of non-bloody, non- billious emmesis. He vomitted once more in the ER. He denied any diarrhea, his last bowel movement was the day before, and he hadn't had any apetite since that morning. Patient denied any fever, chills, dizziness, cough, lower extremity edema, or dysuria. He denied chest pain but described some palpitations that he had while waiting in the ER. One month ago he switched from atorvastatin to crestor. PMH: HTN, CAD with MO & stent in 2015, Drug-induced pacreatitis 2015, cervical arthritis Home Meds: Crestor 20mg Fenofibrate 40mg Olmasartan 40mg Amlodipine 10mg Metropolol XL 100mg Ibuprofin 800mg TID ASA 81mg Lorazepam ROS: GENERAL: denies fever/chills, or weight changes HEENT: denies headache, sore throat, or difficulty swallowing CHEST: denies chest pain, or difficulty breathing. Palpitations per HPI ABDOMEN: Per HPI MSK: endorses neck pain and rough patches on skin during winter. Denies other joint pain or rashes. FH: Father - MO age 36 Mother - Rheumatoid arthritis SH: Patient is a former smoker with a 25 pack year history. Social alcohol use on weekends. Last drink 2 months ago. Denies illicit drug use Objective Objective: Vital Signs Date Time Temp Pulse Resp B/P B/P Pulse O2 O2 Flow FiO2 Mean Ox Delivery Rate 05/18 1446 106 05/18 1209 134 160/100 05/18 1208 134 160/100 05/18 1208 134 160/100 05/18 1202 98.2 134 20 160/100 97 Room Air 05/18 0901 107 160/104 05/18 0720 102 05/18 0641 98.2 130 18 172/115 98 05/18 0637 105 153/109 05/18 0545 130 171/115 05/18 0152 97.5 125 18 178/90 92 05/18 0137 Room Air 05/18 0019 99.3 100 18 160/85 95 Room Air 05/17 2229 98.4 104 18 164/99 99 Room Air 05/17 2109 99.1 110 18 171/108 99 Room Air On physical exam, the patient appears uncomfortable and diaphoretic, alternating between lying on his back and his side. He is alert and oriented speaking in full sentances. Heart rate is tachycardic with a normal S1/S2 and no MRG. Lungs are clear to auscultation bilaterally. Abdomen is distended and tight with TTP and voluntary gaurding in the RUQ. Legs are free of edema with equal pulses bilaterally. No visible lesions on skin. Laboratory values revealed an elevated lipase/amylase. Cholesterol was high but triglycerides were normal. Utox was negative for alcohol. Trops were negative X3. AST/ALT were high but are trending down. Imaging studies include a CT which showed uniform pancreatic inflamation with yasir-pancreatic fat stranging. An Ultrasound confirmed normal appearing gall bladder and CBD. EKG showed sinus tachycardia with no ST changes and evidence of old inferior MO. Laboratory Tests 05/18/18 0800: IgG Total Pending, IgG1 Pending, IgG2 Pending, IgG3 Pending, IgG4 Pending 05/18/18 0732: Anion Gap 10, Estimated GFR > 60, BUN/Creatinine Ratio 16.3 05/18/18 0732: Total Bilirubin 0.7, Direct Bilirubin 0.3, AST 141 H, ALT 163 H, Alkaline Phosphatase 76, Creatine Kinase 240 H, Troponin I 0.02, Total Protein 6.0 L, Albumin 3.7, CBC w Diff NO MAN DIFF REQ, RBC 4.53 L, MCV 94.1 H, MCH 32.1 H, MCHC 34.1, RDW 14.2, MPV 9.3, Gran % 86.0 H, Lymphocytes % 5.4 L, Monocytes % 6.9, Eosinophils % 1.6, Basophils % 0.1, Absolute Granulocytes 7.7 H, Absolute Lymphocytes 0.5 L, Absolute Monocytes 0.6, Absolute Eosinophils 0.1, Absolute Basophils 0 05/18/18 0310: Troponin I 0.02 05/18/18 0045: Lactic Acid 0.7 05/17/18 2150: Anion Gap 16, Estimated GFR > 60, BUN/Creatinine Ratio 21.4, Glucose 118 H, Lactic Acid 2.6 H, Calcium 10.4 H, Total Bilirubin 0.9, AST 199 H, ALT 234 H , Alkaline Phosphatase 98, Troponin I 0.01, Total Protein 7.4, Albumin 4.8, Globulin 2.6, Albumin/Globulin Ratio 1.8, Triglycerides 82, Cholesterol 248 H, LDL Cholesterol, Calc 151 H, HDL Cholesterol 81 H, Cholesterol/HDL Ratio 3, Amylase 376 H, Lipase 9711 H, CBC w Diff NO MAN DIFF REQ, RBC 4.96, MCV 94.1 H, MCH 31.5 H, MCHC 33.5, RDW 13.8, MPV 8.8, Gran % 87.3 H, Lymphocytes % 6.7 L, Monocytes % 5.0, Eosinophils % 0.8, Basophils % 0.2, Absolute Granulocytes 9.1 H, Absolute Lymphocytes 0.7 L, Absolute Monocytes 0.5, Absolute Eosinophils 0.1, Absolute Basophils 0, Serum Alcohol < 10.0 US IMPRESSION: 1. There is no cholelithiasis, and there is no evidence of intrahepatic duct or CBD dilatation. There is no evidence of acute cholecystitis. 2. There is diffuse hepatic steatosis and mild hepatomegaly. 3. There is trace ascites. 4. There is limited evaluation of the pancreas on this study. CT IMPRESSION: Edematous pancreas with adjacent fat stranding and free fluid with peripancreatic lymph nodes indicative of pancreatitis. No drainable fluid collections. No ductal calculi. Assessment/Plan Assessment: 47 YOM with a PMH of HTN, CAD w/ MO and stent, drug-induced pancreatitis, and cervical arthritis presents with acute abdominal pain, nausea and vomiting in the setting of elevated lipase/amylase and CT evidence of pancreatic inflamation without billiary pathology. Problem 1: Pancreatitis Ddx - Drug-induced pancreatitis, chronic pancreatitis, autoimmune pancreatitis, SLE. Pancreatitis 2/2 alcohol or gall stone is unlikely at this point given the laboratory and imaging evidence. Drug-induced is a possibility due to the timing of the switch to crestor and the fact that an older cholesterol medication had been implicated in his pancreatitis 2 years ago. However, the medications in question are not typically associated with drug-induced pancreatitis. Given his prior episode, conversion to chronic disease is a concern. Autoimmune pancreatitis remains an interesting possibility due to the lack of convincing etiology; IgG studies are pending. SLE is a remote possibility, but given his seeminly unrelated symptoms of rough skin patches, cervical arthritis, and HTN, it may be worth entertaining. - Fluid repletion (LR or NS at 200/h) - Pain control (Dilaudid IV 2mg q6) - NPO for today, start clear liquids tomorrow Problem 2: HTN Given this patient's concurrent use of three blood pressure lowering drugs and the fact that his BP remains 160/100, a search for a secondary cause of HTN may be warranted. This should be held until his pain is completely under control. He regularly takes Lorazepam, and some of his HTN may be explained by early withdrawl. Electrolites are not consistent with hyperaldosteronism, there are no signs of Paul's syndrome, and pulses are symmetrical. Given this, doppler ultrasound of the renal artery may be justified. Either way, medical control of his blood pressure should be optimized in the mean time. - Check blood pressure q2h - Restart home medications including Lorazepam - Systolic has been lowered from 178 to 160 over the last 12 hours - Aim to lower systolic to 150 over the next 12.
--- NOTE | 2018-05-18 18:16 | RADIOLOGY REPORT ---
EXAMINATION: XR PORTABLE CHEST CLINICAL INFORMATION: Abdominal pain. X-ray. COMPARISON: None TECHNIQUE: Portable AP 85 degrees upright view of the chest was obtained. FINDINGS: No significant abnormality is noted involving the heart, lungs, mediastinum, bony thorax or soft tissues. IMPRESSION: Normal chest.
[2018-05-19 01:19] VITALS: BP 154/90
[2018-05-19 06:42] VITALS: BP 140/86
[2018-05-19 07:08] VITALS: BP 130/82
--- NOTE | 2018-05-19 07:25 | Event Note ---
Event Note Event Note: Patient complained of blurry vision and was noted to be hypertensive. He was count fingers at 6 feet in both eyes formal eye chart not available. He describes it as plastic wrap vision. Unclear etiology, possibly HTN related. We lowered his BP and will continue to monitor. May require an ophthalmology consult depending on clincal course.
[2018-05-19 08:58] LABS: ABSOLUTE BASOPHIL COUNT 0 /CUMM (0.0-0.2); ABSOLUTE EOSINOPHIL COUNT 0.1 /CUMM (0.0-0.7); ABSOLUTE GRANULOCYTE CT 12.2 /CUMM (1.4-6.5); ABSOLUTE LYMPH COUNT 0.4 /CUMM (1.2-3.4); BASOPHIL % 0.2 % (0.0-2.0); EOSINOPHIL % 0.5 % (0-5); GRANULOCYTE % 89.1 % (42.2-75.2); HEMATOCRIT 40.1 % (42-52); MEAN CORPUSCULAR HGB 32.5 PG (27.0-31.0); MEAN CORPUSCULAR HGB CONC 34.2 G/DL (33.0-37.0); MEAN CORPUSCULAR VOLUME 95.2 FL (80.0-94.0); MEAN PLATELET VOLUME 10.8 FL (7.4-10.4); RBC DISTRIBUTION WIDTH 14.1 % (11.5-14.5); RED BLOOD CELL CT 4.21 /CUMM (4.70-6.10)
--- NOTE | 2018-05-19 09:12 | PN- Housestaff ---
Subjective Follow-up For: Pancreatitis Tachycardia Complaints: C/O BLURRY VISION IN THE MORNING NOW RESOLVED. Tele-Events Since Last Visit: NONE Subjective: Have seen and examined the patient today morning, he is doing better however bi lead he had an episode of blurry vision, which he explain as if he was seeing everything through plastic, he was given metoprolol as his blood pressure was found to be on higher side, current blood pressure 156/92 his metoprolol was also increased to 75 twice daily, he continues to remain tachycardic at 108, abdominal pain seems to be a little better compared to before, he is awake and alert, tolerated his diet, we will advance and discontinue fluid if he tolerates. Review of Systems Constitutional: Reports: see HPI. Objective Last 24 Hrs of Vital Signs/I&O Vital Signs Date Time Temp Pulse Resp B/P B/P Pulse O2 O2 Flow FiO2 Mean Ox Delivery Rate 05/19 0808 108 156/92 05/19 0808 108 156/92 05/19 0708 116 130/82 05/19 0642 101.1 121 20 140/86 95 Room Air 05/19 0605 121 140/86 05/19 0119 98.3 110 154/90 05/18 2205 110 142/90 05/18 2048 108 162/92 05/18 2045 99.6 18 18 162/92 95 Room Air 05/18 1855 106 176/102 05/18 1548 106 160/100 05/18 1446 106 05/18 1209 134 160/100 05/18 1208 134 160/100 05/18 1208 134 160/100 05/18 1202 98.2 134 20 160/100 97 Room Air Intake & Output 05/19 1600 05/19 0800 05/19 0000 Intake Total 2014 780 Output Total 600 Balance 1415 780 Intake, IV 1865 780 Intake, Oral 150 0 Output, Urine 600 Physical Exam General Appearance: Alert, Oriented X3, Cooperative, Mild Distress Skin: No Rashes, No Breakdown, FLUSHED HEENT: Atraumatic, PERRLA, EOMI Neck: Supple, No JVD Lymphatic: NOLAD Cardiovascular: Normal S1, Normal S2, TACHYCARDIA Lungs: Clear to Auscultation, Normal Air Movement Abdomen: Normal Bowel Sounds, Soft, MILD TENDERNESS IN EPIGASTRIC AREA, BS+ Neurological: Strength at 5/5 X4 Ext, Normal Tone, Sensation Intact, Cranial Nerves 3-12 NL Extremities: No Clubbing, No Cyanosis, No Edema, Normal Pulses Vascular: Normal Pulses Current Medications: Current Medications Sig/Inge Start time Last Medication Dose Route Stop Time Status Admin Amlodipine Besylate 10 MG DAILY 05/19 0900 CAN PO Amlodipine Besylate 5 MG DAILY 05/19 0900 AC 05/19 PO 0808 Amlodipine Besylate 10 MG DAILY 05/18 1420 DC PO Artificial Tears 2 GTT Q2 PRN 05/19 0615 AC 05/19 OPH 0911 Aspirin 81 MG DAILY 05/18 0900 AC 05/19 PO 0807 Aspirin Buffered 81 MG DAILY 05/18 1420 DC PO Fenofibrate 48 MG DAILY 05/19 09 CAN PO Fenofibrate 48 MG DAILY 05/19 0900 AC 05/19 PO 0809 Heparin Sodium 5,000 UNIT Q8 05/18 0600 AC 05/19 (Porcine) SC 0533 Hydromorphone HCl 2 MG Q4P PRN 05/18 1230 AC 05/19 IV 0641 Hydromorphone HCl 0.5 MG Q4P PRN 05/18 0215 DC 05/18 IV 1209 Lactated Ringer's 1,000 ML Q6H 05/18 1000 AC 05/19 IV 0531 Lactated Ringer's 1,000 ML 200 MLS/HR 05/18 0215 DC 05/18 IV 05/19 0216 0924 Lorazepam 0.5 MG TID 05/18 2100 AC 05/19 PO 05/25 2059 0809 Lorazepam 0.25 MG TID 05/18 0901 DC 05/18 PO 05/25 0900 1401 Losartan Potassium 50 MG DAILY 05/18 1421 DC PO Losartan Potassium 100 MG DAILY 05/18 0900 AC 05/19 PO 0808 Metoprolol Succinate 100 MG DAILY 05/19 0900 CAN PO Metoprolol Tartrate 75 MG BID 05/19 0900 AC 05/19 PO 0808 Metoprolol Tartrate 25 MG ONCE ONE 05/19 0545 DC 05/19 PO 05/19 0546 0605 Metoprolol Tartrate 50 MG ONCE ONE 05/18 1415 DC 05/18 PO 05/18 1416 1548 Metoprolol Tartrate 50 MG BID 05/18 0900 DC 05/18 PO 05/19 0859 2048 Morphine Sulfate 2 MG Q6P PRN 05/18 0300 AC 05/18 IV 0251 Ondansetron HCl 4 MG Q6P PRN 05/18 1645 AC 05/18 IV 1851 Patient Medication 1 ED ONE ONE 05/18 1345 SD Teaching ED 05/18 1346 Rosuvastatin Calcium 20 MG 1700 05/18 1700 AC 05/18 PO 1605 Last 24 Hrs of Lab/Scooter Results Last 24 Hrs of Labs/Mics: Laboratory Tests 05/19/18 0700: Anion Gap 9, Estimated GFR > 60, BUN/Creatinine Ratio 11.3, Total Bilirubin 0.7, Direct Bilirubin 0.3, AST 80 H, ALT 97 H, Alkaline Phosphatase 56, Total Protein 5.2 L, Albumin 2.9 L, CBC w Diff Pending, WBC Pending, RBC Pending, Hgb Pending, Hct Pending, MCV Pending, MCH Pending, MCHC Pending, RDW Pending, Plt Count Pending, MPV Pending Lines/Diet/Fluids Restraints: none Assessment/Plan Assessment: This is a 47-year-old male with past medical history significant for former smoking, social alcohol, hypertension, coronary artery disease status NE status post PCI with right RCA stent (09/2016), previous episode of pancreatitis 2 years ago thought to be secondary to medication (? Atorvastatin), presented with acute onset of right-sided abdominal pain May 17, 2018 today is day 3 of admission. On admission he was found to be tachycardic and hypertensive with heart rate greater than 110 and diastolic blood pressure greater than 110. He was admitted to general medicine for for treatment of acute pancreatitis. Problem #1 acute pancreatitis. * Ct abdomen and pelvis showed hepatic steatosis, edematous pancreas with adjacent fat stranding and free fluid with peripancreatic lymph nodes, no fluid collection, no necrotic areas. * Triglycerides were found to be not significantly high, he does not have a history of alcoholism, etiology of his pancreatitis is unclear. * Right upper quadrant ultrasound did not show any cholelithiasis or intrahepatic duct or CBD dilatation, there was no evidence of acute cholecystitis found as well. * Pain management, Dilaudid was increased to 1 mg to 2 mg every 3-4 hours. Plan is to proceed for a HIDA scan on Monday with CCK. * Patient will continued with lactated Ringer, if he tolerates p.o. diet today, we will advance the diet and discontinue IV fluids. * There is a possibility of recurrent pancreatitis on the basis of biliary microcrystals therefore once HIDA scan with CCK is done an ejection fraction of gallbladder is monitored, there might be a role for empiric cholecystectomy. * IgG4 has been sent to rule out autoimmune pancreatitis, other serologies such as CFTR, SPINK ans PRSS1 will be considered about her negative. Problem #2 transaminitis. * This could be from metabolic syndrome/nonalcoholic fatty liver disease, we will continue to monitor. Problem #3 tachycardia. * Patient continues to remain in sinus tachycardia, he received additional dose of metoprolol 50 yesterday and another additional 25 overnight. * His metoprolol was increased to 75 twice daily. * Continue to monitor heart rate. * Cardiology was consulted for further management of tachycardia. #4 blurry vision. * Overnight patient was found to have blurry vision, he described it as as if his eyes were covered with plastic, he was given 1 time off 25 mg of metoprolol and 5 mg of amlodipine to bring his blood pressure down as it was noted to be 162/92, his vision did improve, his blood pressure today morning is 152/92, currently does not have any blurry vision however low threshold to call ophthalmology if he continues to have blurry vision and get a CAT scan of the head. #5 Temp of 101.1 * will watch closely, if continues to spike, will be concerning and will repeat CT A/p to r/o complications pf pancreatitis. He is full code. On clear liquids for now, will advance to full liquids. DVT prophylaxis with heparin. Pain management with Dilaudid. Problem List: 1. Transaminitis 2. Pancreatitis 3. Tachycardia Pain Ratin Pain Location: abdomen Pain Goal: Remain pain free Pain Plan: dilaudid Tomorrow's Labs & Rationales: not needed
--- NOTE | 2018-05-19 09:17 | PN- Att Addend ---
Attending Addendum Attending Brief Note Pt seen and examined. Agree with resident's note. Overall clinically patient is feeling much better. He was eager to eat and his pain is better and he's been started on clears. He says that since the morning and since starting clears as he is already feeling better and this haziness that he was describing with his vision is already considerably improved. He is a 47-year-old male with a past medical history of coronary artery disease status post stenting with hyperlipidemia who is here with acute pancreatitis of unclear etiology. There is no obvious alcohol history and no gallstones seen on imaging. Appreciate GI consult who feel that he needs a HIDA with CCK to look for unusual causes of pancreatitis. Because his parameters had not improved any his fluids i.e. the lactated Ringer's of back to 250 an hour but clinically he appears markedly improved so I've told the nurse and the resident that if he continues to tolerate the clear liquids, we can back off on the fluids. Will watch his crit and his liver enzymes closely. He did spike to 101 which is concerning. His last CT scan done day before yesterday with IV contrast didn't show any evidence of necrosis if he continues to be febrile will have a low threshold to repeat the CT with IV contrast for the possibility of necrotizing pancreatitis. Formal cardio allergic consult has been called for persistent tachycardia. They suggested to increase the metoprolol to 75 twice a day and they will come to see him today
[2018-05-19 10:30] VITALS: BP 140/90
[2018-05-19 11:33] LABS: WHITE BLOOD CELL COUNT 13.7 /CUMM (4.8-10.8)
[2018-05-19 11:34] LABS: PLATELET COUNT 114 /CUMM (130-400)
--- NOTE | 2018-05-19 13:20 | Cons- Cardiology ---
General Information and HPI Consulting Request Date of Consult: 05/19/18 Requested By: Olga Fox MD History of Present Illness: Young man with history of CAD s/p PCI 2015 (Dr Pearec), possible statin induced hepatitis, alcohol abuse in remission. He also suffers from cervical and thoracic spine degenerative changes. Presented to the ED on 05/18 for acute onset abdominal pain which is due to acute pancreatis. He has presented fever and leucocytosis and sinus tachycardia (ad 120bpm at times, generally around 105bpm)since arrival. He denies chest pains, denies shortness of breath, denies dizzyness, denies orthopnea. He does however suffer from significant abdominal pain due to his pancreatitis. EKG simply shows sinus tachycardia without evidence of acute ischemia. Troponins have been negative X 2. Allergies/Medications Allergies: Coded Allergies: No Known Allergies (05/17/18) Home Med List: Amlodipine Besylate (Norvasc) 10 MG TABLET 1 TAB PO DAILY HTN (Reported) Aspirin (Ecotrin*) 81 MG TABLET.DR 1 TAB PO DAILY HEART/BLOOD (Reported) Carboxymethylcellulose Sodium (Lubricant Eye Drops) (Unknown Strength) DROPS ( Unknown Dose) OU AD PRN BOTH EYES (Reported) Cholecalciferol (Vitamin D3) (Vitamin D) (Unknown Strength) TABLET (Unknown Dose) PO DAILY SUPPLEMENT (Reported) Fenofibrate Nanocrystallized (Fenofibrate) 48 MG TABLET 1 TAB PO DAILY TRIGLYCERIDES (Reported) Ibuprofen 800 MG TABLET 1 TAB PO TID PAIN/INFLAMMATION (Reported) Lorazepam (Ativan) 0.5 MG TABLET 0.5 TAB PO TID anxiety (Reported) Metoprolol Succ XL (Toprol XL) 100 MG TAB.ER.24H 1 TAB PO DAILY CAD (Reported ) Olmesartan Medoxomil (Benicar) 40 MG TABLET 1 TAB PO DAILY HTN (Reported) Rosuvastatin Calcium (Crestor) 20 MG TABLET 1 TAB PO DAILY HLD (Reported) Current Medications: Current Medications Sig/Inge Start time Last Medication Dose Route Stop Time Status Admin Amlodipine Besylate 10 MG DAILY 05/19 0900 CAN PO Amlodipine Besylate 5 MG DAILY 05/19 0900 AC 05/19 PO 0808 Amlodipine Besylate 10 MG DAILY 05/18 1420 DC PO Artificial Tears 2 GTT Q2 PRN 05/19 0615 AC 05/19 OPH 0911 Aspirin 81 MG DAILY 05/18 0900 AC 05/19 PO 0807 Aspirin Buffered 81 MG DAILY 05/18 1420 DC PO Fenofibrate 48 MG DAILY 05/19 0900 CAN PO Fenofibrate 48 MG DAILY 05/19 0900 AC 05/19 PO 0809 Heparin Sodium 5,000 UNIT Q8 05/18 0600 AC 05/19 (Porcine) SC 0533 Hydromorphone HCl 2 MG Q4P PRN 05/18 1230 AC 05/19 IV 1243 Lactated Ringer's 1,000 ML Q6H 05/18 1000 AC 05/19 IV 0531 Lorazepam 0.5 MG TID 05/18 2100 AC 05/19 PO 05/25 2059 0809 Lorazepam 0.25 MG TID 05/18 0901 DC 05/18 PO 05/25 0900 1401 Losartan Potassium 50 MG DAILY 05/18 1421 DC PO Losartan Potassium 100 MG DAILY 05/18 0900 AC 05/19 PO 0808 Metoprolol Succinate 100 MG DAILY 05/19 0900 CAN PO Metoprolol Tartrate 75 MG BID 05/19 0900 AC 05/19 PO 0808 Metoprolol Tartrate 25 MG ONCE ONE 05/19 0545 DC 05/19 PO 05/19 0546 0605 Metoprolol Tartrate 50 MG ONCE ONE 05/18 1415 DC 05/18 PO 05/18 1416 1548 Metoprolol Tartrate 50 MG BID 05/18 0900 DC 05/18 PO 05/19 0859 2048 Morphine Sulfate 2 MG Q6P PRN 05/18 0300 AC 05/18 IV 0251 Ondansetron HCl 4 MG ONCE ONE 05/19 1045 DC 05/19 PO 05/19 1046 1042 Ondansetron HCl 4 MG Q6P PRN 05/18 1645 AC 05/19 IV 1234 Patient Medication 1 ED ONE ONE 05/18 1345 DC Teaching ED 05/18 1346 Rosuvastatin Calcium 20 MG 1700 05/18 1700 AC 05/18 PO 1605 Review of Systems Review of Systems Constitutional: Reports: diaphoresis, fever, malaise. Denies: chills, weakness. EENTM: Denies: blurred vision, visual changes, epistaxis. Cardiovascular: Reports: palpitations. Denies: chest pain, edema, orthopena, peripheral edema, syncope. Respiratory: Denies: cough, hemoptysis, orthopnea, short of breath, sputum production, stridor, wheezing. GI: Reports: abdominal pain, bloating, distention, nausea, vomiting. Denies: diarrhea, bowel incontinence, bloody stool. Genitourinary: Denies: dysuria, hematuria. Musculoskeletal: Reports: neck pain. Neurological/Psychological: Denies: cognitive dysfunction, confusion, headache, paresthesia, tremors, weakness. Past History Travel History Traveled to [place] past 21 day No Medical History Blood Transfusion Hx: No Cardiovascular: CAD, S/P Stent Placement (non-eluting) 2014 Gastrointestinal: pancreatitis, Hepatic Steatosis Surgical History Surgical History: non-contributory Psychosocial History Where Do You Live? Home Services at Home: None Smoking Status: Former Smoker ETOH Use: denies use Illicit Drug Use: denies illicit drug use Exam & Diagnostic Data Vital Signs and I&O Vital Signs Date Time Temp Pulse Resp B/P B/P Pulse O2 O2 Flow FiO2 Mean Ox Delivery Rate 05/19 1030 108 18 140/90 95 Room Air 05/19 0808 108 156/92 05/19 0808 108 156/92 05/19 0708 116 130/82 05/19 0642 101.1 121 20 140/86 95 Room Air 05/19 0605 121 140/86 05/19 0119 98.3 110 154/90 05/18 2205 110 142/90 05/18 2048 108 162/92 05/18 2045 99.6 18 18 162/92 95 Room Air 05/18 1855 106 176/102 05/18 1548 106 160/100 05/18 1446 106 Intake & Output 05/19 1600 05/19 0800 05/19 0000 05/18 1600 05/18 0800 05/18 0000 Intake Total 2014 780 1600 2200 1000 Output Total 600 600 Balance 6818 091 4674 1600 1000 Intake, IV 0967 954 4866 2200 1000 Intake, Oral 150 0 0 0 Output, Urine 600 600 Patient 200 lb 200 lb Weight Weight Reported by Patient Reported by Patient Measurement Method Physical Exam: General Appearance Alert, Oriented X3, Cooperative, No Acute Distress HEENT Atraumatic, PERRLA, EOMI, Mucous Membr. moist/pink Neck Supple, No JVD Cardiovascular Regular Rate, Normal S1, Normal S2, No Murmurs, no rub Lungs Clear to Auscultation, Normal Air Movement Abdomen Normal Bowel Sounds, Soft, No Hepatospenomegaly, No Masses, patient has pain on deep palpation Neurological Normal Speech, no focal motor or sensory deficit Extremities No Edema, Normal Pulses, good capillary refill Labs/Scooter Results: Laboratory Tests 05/19 05/18 05/18 0700 0800 0732 Chemistry Sodium (137 - 145 mmol/L) 133 L 139 Potassium (3.5 - 5.1 mmol/L) 4.4 4.6 Chloride (98 - 107 mmol/L) 97 L 104 Carbon Dioxide (22 - 30 mmol/L) 27 25 Anion Gap (5 - 16) 9 10 BUN (9 - 20 mg/dL) 9 13 Creatinine (0.7 - 1.2 mg/dL) 0.8 0.8 Estimated GFR (>60 ml/min) > 60 > 60 BUN/Creatinine Ratio (7 - 25 %) 11.3 16.3 Total Bilirubin (0.2 - 1.3 mg/dL) 0.7 Direct Bilirubin (< 0.4 mg/dL) 0.3 AST (17 - 59 U/L) 80 H ALT (21 - 72 U/L) 97 H Alkaline Phosphatase (< 127 U/L) 56 Total Protein (6.3 - 8.2 g/dL) 5.2 L Albumin (3.5 - 5.0 g/dL) 2.9 L Hematology CBC w Diff NO MAN DIFF REQ WBC (4.8 - 10.8 /CUMM) 13.7 H RBC (4.70 - 6.10 /CUMM) 4.21 L Hgb (14.0 - 18.0 G/DL) 13.7 L Hct (42 - 52 %) 40.1 L MCV (80.0 - 94.0 FL) 95.2 H MCH (27.0 - 31.0 PG) 32.5 H MCHC (33.0 - 37.0 G/DL) 34.2 RDW (11.5 - 14.5 %) 14.1 Plt Count (130 - 400 /CUMM) 114 L MPV (7.4 - 10.4 FL) 10.8 H Gran % (42.2 - 75.2 %) 89.1 H Lymphocytes % (20.5 - 51.1 %) 3.1 L Monocytes % (1.7 - 9.3 %) 7.1 Eosinophils % (0 - 5 %) 0.5 Basophils % (0.0 - 2.0 %) 0.2 Absolute Granulocytes (1.4 - 6.5 /CUMM) 12.2 H Absolute Lymphocytes (1.2 - 3.4 /CUMM) 0.4 L Absolute Monocytes (0.10 - 0.60 /CUMM) 1.0 H Absolute Eosinophils (0.0 - 0.7 /CUMM) 0.1 Absolute Basophils (0.0 - 0.2 /CUMM) 0 Immunology IgG Total Pending IgG1 Pending IgG2 Pending IgG3 Pending IgG4 Pending 05/18 05/18 05/18 0732 0310 0045 Chemistry Lactic Acid (0.7 - 2.1 mmol/L) 0.7 Total Bilirubin (0.2 - 1.3 mg/dL) 0.7 Direct Bilirubin (< 0.4 mg/dL) 0.3 AST (17 - 59 U/L) 141 H ALT (21 - 72 U/L) 163 H Alkaline Phosphatase (< 127 U/L) 76 Creatine Kinase (55 - 170 U/L) 240 H Troponin I (<0.11 ng/ml) 0.02 0.02 Total Protein (6.3 - 8.2 g/dL) 6.0 L Albumin (3.5 - 5.0 g/dL) 3.7 Hematology CBC w Diff NO MAN DIFF REQ WBC (4.8 - 10.8 /CUMM) 9.0 RBC (4.70 - 6.10 /CUMM) 4.53 L Hgb (14.0 - 18.0 G/DL) 14.5 Hct (42 - 52 %) 42.6 MCV (80.0 - 94.0 FL) 94.1 H MCH (27.0 - 31.0 PG) 32.1 H MCHC (33.0 - 37.0 G/DL) 34.1 RDW (11.5 - 14.5 %) 14.2 Plt Count (130 - 400 /CUMM) 145 MPV (7.4 - 10.4 FL) 9.3 Gran % (42.2 - 75.2 %) 86.0 H Lymphocytes % (20.5 - 51.1 %) 5.4 L Monocytes % (1.7 - 9.3 %) 6.9 Eosinophils % (0 - 5 %) 1.6 Basophils % (0.0 - 2.0 %) 0.1 Absolute Granulocytes (1.4 - 6.5 /CUMM) 7.7 H Absolute Lymphocytes (1.2 - 3.4 /CUMM) 0.5 L Absolute Monocytes (0.10 - 0.60 /CUMM) 0.6 Absolute Eosinophils (0.0 - 0.7 /CUMM) 0.1 Absolute Basophils (0.0 - 0.2 /CUMM) 0 05/17 2150 Chemistry Sodium (137 - 145 mmol/L) 136 L Potassium (3.5 - 5.1 mmol/L) 4.4 Chloride (98 - 107 mmol/L) 98 Carbon Dioxide (22 - 30 mmol/L) 22 Anion Gap (5 - 16) 16 BUN (9 - 20 mg/dL) 15 Creatinine (0.7 - 1.2 mg/dL) 0.7 Estimated GFR (>60 ml/min) > 60 BUN/Creatinine Ratio (7 - 25 %) 21.4 Glucose (65 - 99 mg/dL) 118 H Lactic Acid (0.7 - 2.1 mmol/L) 2.6 H Calcium (8.4 - 10.2 mg/dL) 10.4 H Total Bilirubin (0.2 - 1.3 mg/dL) 0.9 AST (17 - 59 U/L) 199 H ALT (21 - 72 U/L) 234 H Alkaline Phosphatase (< 127 U/L) 98 Troponin I (<0.11 ng/ml) 0.01 Total Protein (6.3 - 8.2 g/dL) 7.4 Albumin (3.5 - 5.0 g/dL) 4.8 Globulin (1.9 - 4.2 gm/dL) 2.6 Albumin/Globulin Ratio (1.1 - 2.2 %) 1.8 Triglycerides (<150 mg/dL) 82 Cholesterol (< 200 MG/DL) 248 H LDL Cholesterol, Calc (65 - 129 mg/dL) 151 H HDL Cholesterol (40 - 60 mg/dL) 81 H Cholesterol/HDL Ratio (0.00 - 4.88 %) 3 Amylase (30 - 110 U/L) 376 H Lipase (23 - 300 U/L) 9711 H Hematology CBC w Diff NO MAN DIFF REQ WBC (4.8 - 10.8 /CUMM) 10.4 RBC (4.70 - 6.10 /CUMM) 4.96 Hgb (14.0 - 18.0 G/DL) 15.6 Hct (42 - 52 %) 46.7 MCV (80.0 - 94.0 FL) 94.1 H MCH (27.0 - 31.0 PG) 31.5 H MCHC (33.0 - 37.0 G/DL) 33.5 RDW (11.5 - 14.5 %) 13.8 Plt Count (130 - 400 /CUMM) 183 MPV (7.4 - 10.4 FL) 8.8 Gran % (42.2 - 75.2 %) 87.3 H Lymphocytes % (20.5 - 51.1 %) 6.7 L Monocytes % (1.7 - 9.3 %) 5.0 Eosinophils % (0 - 5 %) 0.8 Basophils % (0.0 - 2.0 %) 0.2 Absolute Granulocytes (1.4 - 6.5 /CUMM) 9.1 H Absolute Lymphocytes (1.2 - 3.4 /CUMM) 0.7 L Absolute Monocytes (0.10 - 0.60 /CUMM) 0.5 Absolute Eosinophils (0.0 - 0.7 /CUMM) 0.1 Absolute Basophils (0.0 - 0.2 /CUMM) 0 Toxicology Serum Alcohol (<10 MG/DL) < 10.0 Assessment/Plan Assessment/Plan Acute pancreatitis in patient with history of pancreatitis and possible statin induced hepatitis. leucocytosis improving, however patient is still presenting spikes of fever as well as sinus tachycardia 100-120 bpm. There is no evidence of acute ischemia. This is not an arrhythmic process but rather a response to pain and sepsis. I would refrain from increasing betablockers to slow his heart rate, even if the reasoning is to decrease the work load on a heart with CAD. Rather i would improve his pain control, and i belive he is not hydrated enough for an acute pancreatitis, in a patient of his size. Consult Acknowledgment - Thank you for your consult request.
[2018-05-19 13:35] VITALS: BP 134/92
--- NOTE | 2018-05-19 15:39 | PN- Gastroenterology ---
Assessment/Plan GI Assessment/Recommendations: 47-year-old man with a history of pancreatitis unclear etiologies. Ending now with a second episode of pancreatitis approximately 3-4 days ago. Since admission he has had definite improvement in his nausea and abdominal pain. He has been taking solid food since last night and has been tolerating it very well. No indications of additional complications such as infection or hemorrhage. In summary patient with acute pancreatitis likely improving gradually. Subjective Subjective: a Objective Vital Signs and I&Os Vital Signs Date Time Temp Pulse Resp B/P B/P Pulse O2 O2 Flow FiO2 Mean Ox Delivery Rate 05/19 1335 99.3 109 18 134/92 93 Room Air 05/19 1030 108 18 140/90 95 Room Air 05/19 0808 108 156/92 05/19 0808 108 156/92 05/19 0708 116 130/82 05/19 0642 101.1 121 20 140/86 95 Room Air 05/19 0605 121 140/86 05/19 0119 98.3 110 154/90 05/18 2205 110 142/90 05/18 2048 108 162/92 05/18 2045 99.6 18 18 162/92 95 Room Air 05/18 1855 106 176/102 05/18 1548 106 160/100 Intake & Output 05/19 1600 05/19 0400 05/18 1600 05/18 0400 05/17 1600 05/17 0400 Intake Total 4715 780 2800 2000 Output Total 600 600 Balance 4115 780 2200 2000 Intake, IV 3565 780 2800 2000 Intake, Oral 1150 0 0 0 Number 0 Bowel Movements Output, Urine 600 600 Patient 200 lb 200 lb Weight Weight Reported by Patient Measurement Method Results Pertinent Lab Results: Laboratory Tests 05/19 05/18 05/18 0700 0800 0732 Chemistry Sodium (137 - 145 mmol/L) 133 L 139 Potassium (3.5 - 5.1 mmol/L) 4.4 4.6 Chloride (98 - 107 mmol/L) 97 L 104 Carbon Dioxide (22 - 30 mmol/L) 27 25 Anion Gap (5 - 16) 9 10 BUN (9 - 20 mg/dL) 9 13 Creatinine (0.7 - 1.2 mg/dL) 0.8 0.8 Estimated GFR (>60 ml/min) > 60 > 60 BUN/Creatinine Ratio (7 - 25 %) 11.3 16.3 Total Bilirubin (0.2 - 1.3 mg/dL) 0.7 Direct Bilirubin (< 0.4 mg/dL) 0.3 AST (17 - 59 U/L) 80 H ALT (21 - 72 U/L) 97 H Alkaline Phosphatase (< 127 U/L) 56 Total Protein (6.3 - 8.2 g/dL) 5.2 L Albumin (3.5 - 5.0 g/dL) 2.9 L Hematology CBC w Diff NO MAN DIFF REQ WBC (4.8 - 10.8 /CUMM) 13.7 H RBC (4.70 - 6.10 /CUMM) 4.21 L Hgb (14.0 - 18.0 G/DL) 13.7 L Hct (42 - 52 %) 40.1 L MCV (80.0 - 94.0 FL) 95.2 H MCH (27.0 - 31.0 PG) 32.5 H MCHC (33.0 - 37.0 G/DL) 34.2 RDW (11.5 - 14.5 %) 14.1 Plt Count (130 - 400 /CUMM) 114 L MPV (7.4 - 10.4 FL) 10.8 H Gran % (42.2 - 75.2 %) 89.1 H Lymphocytes % (20.5 - 51.1 %) 3.1 L Monocytes % (1.7 - 9.3 %) 7.1 Eosinophils % (0 - 5 %) 0.5 Basophils % (0.0 - 2.0 %) 0.2 Absolute Granulocytes (1.4 - 6.5 /CUMM) 12.2 H Absolute Lymphocytes (1.2 - 3.4 /CUMM) 0.4 L Absolute Monocytes (0.10 - 0.60 /CUMM) 1.0 H Absolute Eosinophils (0.0 - 0.7 /CUMM) 0.1 Absolute Basophils (0.0 - 0.2 /CUMM) 0 Immunology IgG Total Pending IgG1 Pending IgG2 Pending IgG3 Pending IgG4 Pending 05/18 05/18 05/18 0732 0310 0045 Chemistry Lactic Acid (0.7 - 2.1 mmol/L) 0.7 Total Bilirubin (0.2 - 1.3 mg/dL) 0.7 Direct Bilirubin (< 0.4 mg/dL) 0.3 AST (17 - 59 U/L) 141 H ALT (21 - 72 U/L) 163 H Alkaline Phosphatase (< 127 U/L) 76 Creatine Kinase (55 - 170 U/L) 240 H Troponin I (<0.11 ng/ml) 0.02 0.02 Total Protein (6.3 - 8.2 g/dL) 6.0 L Albumin (3.5 - 5.0 g/dL) 3.7 Hematology CBC w Diff NO MAN DIFF REQ WBC (4.8 - 10.8 /CUMM) 9.0 RBC (4.70 - 6.10 /CUMM) 4.53 L Hgb (14.0 - 18.0 G/DL) 14.5 Hct (42 - 52 %) 42.6 MCV (80.0 - 94.0 FL) 94.1 H MCH (27.0 - 31.0 PG) 32.1 H MCHC (33.0 - 37.0 G/DL) 34.1 RDW (11.5 - 14.5 %) 14.2 Plt Count (130 - 400 /CUMM) 145 MPV (7.4 - 10.4 FL) 9.3 Gran % (42.2 - 75.2 %) 86.0 H Lymphocytes % (20.5 - 51.1 %) 5.4 L Monocytes % (1.7 - 9.3 %) 6.9 Eosinophils % (0 - 5 %) 1.6 Basophils % (0.0 - 2.0 %) 0.1 Absolute Granulocytes (1.4 - 6.5 /CUMM) 7.7 H Absolute Lymphocytes (1.2 - 3.4 /CUMM) 0.5 L Absolute Monocytes (0.10 - 0.60 /CUMM) 0.6 Absolute Eosinophils (0.0 - 0.7 /CUMM) 0.1 Absolute Basophils (0.0 - 0.2 /CUMM) 0 / 2150 Chemistry Sodium (137 - 145 mmol/L) 136 L Potassium (3.5 - 5.1 mmol/L) 4.4 Chloride (98 - 107 mmol/L) 98 Carbon Dioxide (22 - 30 mmol/L) 22 Anion Gap (5 - 16) 16 BUN (9 - 20 mg/dL) 15 Creatinine (0.7 - 1.2 mg/dL) 0.7 Estimated GFR (>60 ml/min) > 60 BUN/Creatinine Ratio (7 - 25 %) 21.4 Glucose (65 - 99 mg/dL) 118 H Lactic Acid (0.7 - 2.1 mmol/L) 2.6 H Calcium (8.4 - 10.2 mg/dL) 10.4 H Total Bilirubin (0.2 - 1.3 mg/dL) 0.9 AST (17 - 59 U/L) 199 H ALT (21 - 72 U/L) 234 H Alkaline Phosphatase (< 127 U/L) 98 Troponin I (<0.11 ng/ml) 0.01 Total Protein (6.3 - 8.2 g/dL) 7.4 Albumin (3.5 - 5.0 g/dL) 4.8 Globulin (1.9 - 4.2 gm/dL) 2.6 Albumin/Globulin Ratio (1.1 - 2.2 %) 1.8 Triglycerides (<150 mg/dL) 82 Cholesterol (< 200 MG/DL) 248 H LDL Cholesterol, Calc (65 - 129 mg/dL) 151 H HDL Cholesterol (40 - 60 mg/dL) 81 H Cholesterol/HDL Ratio (0.00 - 4.88 %) 3 Amylase (30 - 110 U/L) 376 H Lipase (23 - 300 U/L) 9711 H Hematology CBC w Diff NO MAN DIFF REQ WBC (4.8 - 10.8 /CUMM) 10.4 RBC (4.70 - 6.10 /CUMM) 4.96 Hgb (14.0 - 18.0 G/DL) 15.6 Hct (42 - 52 %) 46.7 MCV (80.0 - 94.0 FL) 94.1 H MCH (27.0 - 31.0 PG) 31.5 H MCHC (33.0 - 37.0 G/DL) 33.5 RDW (11.5 - 14.5 %) 13.8 Plt Count (130 - 400 /CUMM) 183 MPV (7.4 - 10.4 FL) 8.8 Gran % (42.2 - 75.2 %) 87.3 H Lymphocytes % (20.5 - 51.1 %) 6.7 L Monocytes % (1.7 - 9.3 %) 5.0 Eosinophils % (0 - 5 %) 0.8 Basophils % (0.0 - 2.0 %) 0.2 Absolute Granulocytes (1.4 - 6.5 /CUMM) 9.1 H Absolute Lymphocytes (1.2 - 3.4 /CUMM) 0.7 L Absolute Monocytes (0.10 - 0.60 /CUMM) 0.5 Absolute Eosinophils (0.0 - 0.7 /CUMM) 0.1 Absolute Basophils (0.0 - 0.2 /CUMM) 0 Toxicology Serum Alcohol (<10 MG/DL) < 10.0
[2018-05-19 22:51] VITALS: BP 141/80
[2018-05-20 06:27] VITALS: BP 138/86
--- NOTE | 2018-05-20 08:13 | PN- Housestaff ---
Jose Kirk 05/20/18 0812: Subjective Follow-up For: Pancreatitis, Tachycardia, Transaminitis Subjective: 47 yo M HTN CAD VT in 2016 RCA stent, h/o medication-induced pancreatitis 2 years ago, admitted for acute pancreatitis. -No overnight events. Patient had concerns about amount of fluids being given, stating he feels like he retains too much, which had happened on his last admission as well. States he has been urinating and denies trouble breathing. Breathing comfortably under room air, no signs of respiratory compromise. Complains of generalized abdominal pain 02/27, which has been controlled well with dilaudid. Reports one bowel movement this morning which was small, states he has been passing flatus. Denies any current episodes of emesis. Currently tolerating full liquid diet. Patient denied SOB/CP/palpitation/Leg swelling currently. Denies any other specific complaints. Review of Systems Constitutional: Reports: see HPI. Objective Last 24 Hrs of Vital Signs/I&O Vital Signs Date Time Temp Pulse Resp B/P B/P Pulse O2 O2 Flow FiO2 Mean Ox Delivery Rate 05/20 831 112 138/86 05/20 0830 112 138/86 05/20 0627 99.5 112 20 138/86 93 05/19 2251 100.8 110 20 141/80 92 Room Air 05/19 1600 Room Air 05/19 1335 99.3 109 18 134/92 93 Room Air 05/19 1030 108 18 140/90 95 Room Air Intake & Output 05/20 1600 05/20 0800 07 0000 Intake Total 1480 1850 Output Total 800 Balance 680 1850 Intake, IV 1240 1050 Intake, Oral 240 800 Output, Urine 800 Physical Exam General Appearance: Alert, Oriented X3, No Acute Distress Skin: erythematous HEENT: PERRLA, Mucous Membr. moist/pink Neck: No JVD Cardiovascular: Normal S1, Normal S2 Lungs: Clear to Auscultation, Normal Air Movement Abdomen: mild tenderness generalized Extremities: No Clubbing, No Cyanosis Current Medications: Current Medications Sig/Inge Start time Last Medication Dose Route Stop Time Status Admin Amlodipine Besylate 5 MG DAILY 05/19 09 AC 05/20 PO 0830 Artificial Tears 2 GTT Q2 PRN 05/19 615 AC 05/19 OPH 0911 Aspirin 81 MG DAILY 05/18 09 AC 05/20 PO 0831 Fenofibrate 48 MG DAILY 05/19 0900 AC 05/20 PO 0830 Heparin Sodium 5,000 UNIT Q8 05/18 06 AC 05/20 (Porcine) SC 0505 Hydromorphone HCl 2 MG Q4P PRN 05/18 1230 AC 05/20 IV 0505 Lactated Ringer's 1,000 ML Q6H 05/18 1000 AC 05/20 IV 0338 Lorazepam 0.5 MG TID 05/18 2100 AC 05/20 PO 05/25 2059 0830 Losartan Potassium 100 MG DAILY 05/18 09 AC 05/20 PO 0831 Metoprolol Tartrate 75 MG BID 05/19 09 AC 05/20 PO 0830 Morphine Sulfate 2 MG Q6P PRN 05/18 0300 AC 05/20 IV 0408 Ondansetron HCl 4 MG ONCE ONE 05/19 1045 DC 05/19 PO 05/19 1046 1042 Ondansetron HCl 4 MG Q6P PRN 05/18 1645 AC 05/20 IV 0103 Rosuvastatin Calcium 20 MG 1700 05/18 1700 AC 05/18 PO 1605 Last 24 Hrs of Lab/Scooter Results Last 24 Hrs of Labs/Mics: Laboratory Tests 05/20/18 0800: Anion Gap 13, Estimated GFR > 60, BUN/Creatinine Ratio 7.5, Total Bilirubin 1.0, Direct Bilirubin 0.4, AST 70 H, ALT 92 H, Alkaline Phosphatase 79, Total Protein 5.9 L, Albumin 3.4 L, PT 11.1, INR 1.02, CBC w Diff NO MAN DIFF REQ, RBC 4.14 L, MCV 95.6 H, MCH 32.3 H, MCHC 33.8, RDW 14.1, MPV 10.3, Gran % 84.6 H, Lymphocytes % 5.5 L, Monocytes % 8.6, Eosinophils % 0.9, Basophils % 0.4, Absolute Granulocytes 11.0 H, Absolute Lymphocytes 0.7 L, Absolute Monocytes 1.1 H, Absolute Eosinophils 0.1, Absolute Basophils 0 Assessment/Plan Assessment: 47yo M HTN CAD VT, h/o medicine induced pancreatitis 2 years ago admitted for acute pancreatitis. -Pancreatitis -LR @ 75cc/hr. Will monitor for fluid retention and any respiratory complaints. -Currently tolerating full liquid diet, consider advancing to low fat -Pain controlled with dilaudid 2mg q4p. -Zofran PRN for nausea -RUQ U/S and CT neg -Will F/U on IgG -Will be NPO overnight for HIDA scan tomorrow morning -Had one episode of spike temperatures 100.8 --> if 101 or greater today, will consult GI for suspicion of necrotizing pancreatitis -Tachycardia -Cardio consult appreciated. Will continue metoprolol 75mg po BID. -Transaminitis -AST/ALT trending downward -HTN -Amlodipine and Losartan -DVT PPx: Will hold sub-q heparin in light of platelets, will get CBC and change to ALPS and encourage pt to be ambulatory Problem List: 1. Pancreatitis 2. Transaminitis 3. Tachycardia Pain Ratin Pain Location: Abdomen, generalized Pain Goal: Pain 4 or less Pain Plan: dilaudid 2mg q4p, hold overnight for HIDA tomorrow morning Tomorrow's Labs & Rationales: CBC Olga Fox MD 05/20/18 1029: Attending MD Review Statement Attending Statement Attending MD Statement: examined this patient, discuss w/resident/PA/PHARMACEUTICAL PLANT OPERATOR, agreed w/resident/PA/PHARMACEUTICAL PLANT OPERATOR, reviewed EMR data (avail), discussed with nursing, reviewed images Attending Assessment/Plan: Pt looks much better. He is walking all over the unit. He had one bowel movement yesterday. He says it was hard. He is worried that he is retaining fluid and he says the similar thing happened to him last time he pancreatitis. He is eager to try a low-fat diet. He is also worried because 2 of his IVs have already infiltrated. At this point all of his clinical parameters in terms of his temperature MAXIMUM TEMPERATURE 100.8 his LFTs and his clinical status appears to be improving. I think we can safely advance his diet to low-fat, decrease his IV fluids and if he tolerates his diet can probably stop the fluids completely. We need to keep a close watch on the white count and will check that again tomorrow. If he spikes again then we have to discuss with GI whether we need to repeat the CT scan with IV contrast to make sure he doesn't have any area of necrosis. His platelet count is slowly decreasing and given that he is ambulating all over I think we can stop the subcutaneous heparin. Encourage ambulation and put Alps on when he is lying down. He scheduled to have this HIDA CCK in the morning. GIs point was that given that this is recurrent idiopathic pancreatitis we should rule out biliary dyskinesia or microcrystals that could be causing this and he may benefit from a cholecystectomy if he has any of the above.
[2018-05-20 08:33] LABS: ABSOLUTE BASOPHIL COUNT 0 /CUMM (0.0-0.2); ABSOLUTE EOSINOPHIL COUNT 0.1 /CUMM (0.0-0.7); ABSOLUTE LYMPH COUNT 0.7 /CUMM (1.2-3.4); ABSOLUTE MONOCYTE COUNT 1.1 /CUMM (0.10-0.60); BASOPHIL % 0.4 % (0.0-2.0); EOSINOPHIL % 0.9 % (0-5); GRANULOCYTE % 84.6 % (42.2-75.2); HEMATOCRIT 39.5 % (42-52); MEAN CORPUSCULAR HGB 32.3 PG (27.0-31.0); MEAN CORPUSCULAR HGB CONC 33.8 G/DL (33.0-37.0); MEAN CORPUSCULAR VOLUME 95.6 FL (80.0-94.0); MEAN PLATELET VOLUME 10.3 FL (7.4-10.4); PLATELET COUNT 119 /CUMM (130-400); RBC DISTRIBUTION WIDTH 14.1 % (11.5-14.5); RED BLOOD CELL CT 4.14 /CUMM (4.70-6.10)
[2018-05-20 08:51] LABS: PT 11.1 SEC (9.4-12.5)
--- NOTE | 2018-05-20 13:45 | PN- Gastroenterology ---
Assessment/Plan GI Assessment/Recommendations: Uneventful 24 hours. Still taking low-fat diet. No nausea vomiting. Does continue to have epigastric pain requiring Dilaudid. No fever or other evidence of infection. Abdomen soft with mild epigastric discomfort on palpation. No rebound tenderness. Agree with continuing on low-fat diet. Hopeful that his analgesia requirements with decrease over the next 1-2 days. Subjective Subjective: x Objective Vital Signs and I&Os Vital Signs x Date Time Temp Pulse Resp B/P B/P Pulse O2 O2 Flow FiO2 Mean Ox Delivery Rate 05/20 831 112 138/86 05/20 830 112 138/86 05/20 627 99.5 112 20 138/86 93 05/19 2251 100.8 110 20 141/80 92 Room Air 05/19 1600 Room Air Intake & Output 05/20 04005/19 1600 05/19 0400 05/18 0400 Intake Total 1480 1850 4715 780 2800 2000 Output Total 800 600 600 Balance 680 1850 4115 780 2200 2000 Intake, IV 1240 1050 3565 780 2800 2000 Intake, Oral 372 962 5786 0 0 0 Number 0 Bowel Movements Output, Urine 800 600 600 Patient 200 lb 200 lb Weight Weight Reported by Patient Measurement Method Results Pertinent Lab Results: x Laboratory Tests 05/20 05/19 0800 0700 Chemistry Sodium (137 - 145 mmol/L) 140 133 L Potassium (3.5 - 5.1 mmol/L) 3.9 4.4 Chloride (98 - 107 mmol/L) 102 97 L Carbon Dioxide (22 - 30 mmol/L) 25 27 Anion Gap (5 - 16) 13 9 BUN (9 - 20 mg/dL) 6 L 9 Creatinine (0.7 - 1.2 mg/dL) 0.8 0.8 Estimated GFR (>60 ml/min) > 60 > 60 BUN/Creatinine Ratio (7 - 25 %) 7.5 11.3 Total Bilirubin (0.2 - 1.3 mg/dL) 1.0 0.7 Direct Bilirubin (< 0.4 mg/dL) 0.4 0.3 AST (17 - 59 U/L) 70 H 80 H ALT (21 - 72 U/L) 92 H 97 H Alkaline Phosphatase (< 127 U/L) 79 56 Total Protein (6.3 - 8.2 g/dL) 5.9 L 5.2 L Albumin (3.5 - 5.0 g/dL) 3.4 L 2.9 L Coagulation PT (9.4 - 12.5 SEC) 11.1 INR (0.90 - 1.17) 1.02 Hematology CBC w Diff NO MAN DIFF REQ NO MAN DIFF REQ WBC (4.8 - 10.8 /CUMM) 13.0 H 13.7 H RBC (4.70 - 6.10 /CUMM) 4.14 L 4.21 L Hgb (14.0 - 18.0 G/DL) 13.4 L 13.7 L Hct (42 - 52 %) 39.5 L 40.1 L MCV (80.0 - 94.0 FL) 95.6 H 95.2 H MCH (27.0 - 31.0 PG) 32.3 H 32.5 H MCHC (33.0 - 37.0 G/DL) 33.8 34.2 RDW (11.5 - 14.5 %) 14.1 14.1 Plt Count (130 - 400 /CUMM) 119 L 114 L MPV (7.4 - 10.4 FL) 10.3 10.8 H Gran % (42.2 - 75.2 %) 84.6 H 89.1 H Lymphocytes % (20.5 - 51.1 %) 5.5 L 3.1 L Monocytes % (1.7 - 9.3 %) 8.6 7.1 Eosinophils % (0 - 5 %) 0.9 0.5 Basophils % (0.0 - 2.0 %) 0.4 0.2 Absolute Granulocytes (1.4 - 6.5 /CUMM) 11.0 H 12.2 H Absolute Lymphocytes (1.2 - 3.4 /CUMM) 0.7 L 0.4 L Absolute Monocytes (0.10 - 0.60 /CUMM) 1.1 H 1.0 H Absolute Eosinophils (0.0 - 0.7 /CUMM) 0.1 0.1 Absolute Basophils (0.0 - 0.2 /CUMM) 0 0 05/18 05/18 05/18 05/18 0800 0732 0732 0310 Chemistry Sodium (137 - 145 mmol/L) 139 Potassium (3.5 - 5.1 mmol/L) 4.6 Chloride (98 - 107 mmol/L) 104 Carbon Dioxide (22 - 30 mmol/L) 25 Anion Gap (5 - 16) 10 BUN (9 - 20 mg/dL) 13 Creatinine (0.7 - 1.2 mg/dL) 0.8 Estimated GFR (>60 ml/min) > 60 BUN/Creatinine Ratio (7 - 25 %) 16.3 Total Bilirubin (0.2 - 1.3 mg/dL) 0.7 Direct Bilirubin (< 0.4 mg/dL) 0.3 AST (17 - 59 U/L) 141 H ALT (21 - 72 U/L) 163 H Alkaline Phosphatase (< 127 U/L) 76 Creatine Kinase (55 - 170 U/L) 240 H Troponin I (<0.11 ng/ml) 0.02 0.02 Total Protein (6.3 - 8.2 g/dL) 6.0 L Albumin (3.5 - 5.0 g/dL) 3.7 Hematology CBC w Diff NO MAN DIFF REQ WBC (4.8 - 10.8 /CUMM) 9.0 RBC (4.70 - 6.10 /CUMM) 4.53 L Hgb (14.0 - 18.0 G/DL) 14.5 Hct (42 - 52 %) 42.6 MCV (80.0 - 94.0 FL) 94.1 H MCH (27.0 - 31.0 PG) 32.1 H MCHC (33.0 - 37.0 G/DL) 34.1 RDW (11.5 - 14.5 %) 14.2 Plt Count (130 - 400 /CUMM) 145 MPV (7.4 - 10.4 FL) 9.3 Gran % (42.2 - 75.2 %) 86.0 H Lymphocytes % (20.5 - 51.1 %) 5.4 L Monocytes % (1.7 - 9.3 %) 6.9 Eosinophils % (0 - 5 %) 1.6 Basophils % (0.0 - 2.0 %) 0.1 Absolute Granulocytes (1.4 - 6.5 /CUMM) 7.7 H Absolute Lymphocytes (1.2 - 3.4 /CUMM) 0.5 L Absolute Monocytes (0.10 - 0.60 /CUMM) 0.6 Absolute Eosinophils (0.0 - 0.7 /CUMM) 0.1 Absolute Basophils (0.0 - 0.2 /CUMM) 0 Immunology IgG Total Pending IgG1 Pending IgG2 Pending IgG3 Pending IgG4 Pending 05/18 05/17 0045 2150 Chemistry Sodium (137 - 145 mmol/L) 136 L Potassium (3.5 - 5.1 mmol/L) 4.4 Chloride (98 - 107 mmol/L) 98 Carbon Dioxide (22 - 30 mmol/L) 22 Anion Gap (5 - 16) 16 BUN (9 - 20 mg/dL) 15 Creatinine (0.7 - 1.2 mg/dL) 0.7 Estimated GFR (>60 ml/min) > 60 BUN/Creatinine Ratio (7 - 25 %) 21.4 Glucose (65 - 99 mg/dL) 118 H Lactic Acid (0.7 - 2.1 mmol/L) 0.7 2.6 H Calcium (8.4 - 10.2 mg/dL) 10.4 H Total Bilirubin (0.2 - 1.3 mg/dL) 0.9 AST (17 - 59 U/L) 199 H ALT (21 - 72 U/L) 234 H Alkaline Phosphatase (< 127 U/L) 98 Troponin I (<0.11 ng/ml) 0.01 Total Protein (6.3 - 8.2 g/dL) 7.4 Albumin (3.5 - 5.0 g/dL) 4.8 Globulin (1.9 - 4.2 gm/dL) 2.6 Albumin/Globulin Ratio (1.1 - 2.2 %) 1.8 Triglycerides (<150 mg/dL) 82 Cholesterol (< 200 MG/DL) 248 H LDL Cholesterol, Calc (65 - 129 mg/dL) 151 H HDL Cholesterol (40 - 60 mg/dL) 81 H Cholesterol/HDL Ratio (0.00 - 4.88 %) 3 Amylase (30 - 110 U/L) 376 H Lipase (23 - 300 U/L) 9711 H Hematology CBC w Diff NO MAN DIFF REQ WBC (4.8 - 10.8 /CUMM) 10.4 RBC (4.70 - 6.10 /CUMM) 4.96 Hgb (14.0 - 18.0 G/DL) 15.6 Hct (42 - 52 %) 46.7 MCV (80.0 - 94.0 FL) 94.1 H MCH (27.0 - 31.0 PG) 31.5 H MCHC (33.0 - 37.0 G/DL) 33.5 RDW (11.5 - 14.5 %) 13.8 Plt Count (130 - 400 /CUMM) 183 MPV (7.4 - 10.4 FL) 8.8 Gran % (42.2 - 75.2 %) 87.3 H Lymphocytes % (20.5 - 51.1 %) 6.7 L Monocytes % (1.7 - 9.3 %) 5.0 Eosinophils % (0 - 5 %) 0.8 Basophils % (0.0 - 2.0 %) 0.2 Absolute Granulocytes (1.4 - 6.5 /CUMM) 9.1 H Absolute Lymphocytes (1.2 - 3.4 /CUMM) 0.7 L Absolute Monocytes (0.10 - 0.60 /CUMM) 0.5 Absolute Eosinophils (0.0 - 0.7 /CUMM) 0.1 Absolute Basophils (0.0 - 0.2 /CUMM) 0 Toxicology Serum Alcohol (<10 MG/DL) < 10.0
--- NOTE | 2018-05-20 14:13 | Event Note ---
Event Note Event Note: S:Notified by RN that patient would like to d/c fluids as he is tolerating PO liquids at this time. I went to see the patient. He explained he just has 'a lot going on right now and feels bloated'. He doesn't want to overload himself with fluids. I explained the importance of hydration in the setting of pancreatitis. O: VSS with tachycardia to 112 (persistant since admission) Gen: well appearing, up ambulating in room Abd: distended; non tender to light palpation A/P: 47 year old male with dx of pancreatitis and tachycardia currently refusing continue IVF hydration. Patient to undergo HIDA scan in AM and will be NPO after MN. -Discussed importance of hydration with pancreatitis and the patient agrees to restart IVF after MN. Will keep IVF off until that time and encourage continued PO liquid intake. Yasmine Webb PGY1 Pager [phone]
[2018-05-20 15:00] VITALS: BP 138/90
[2018-05-20 19:12] VITALS: BP 150/90
[2018-05-20 20:18] VITALS: BP 158/98
--- NOTE | 2018-05-20 22:10 | Event Note ---
Event Note Event Note: Mr. Hernandez is a 47 yr old gentleman with PMH significant for HTN, CAD and medication-induced pancreatitis has not admitted with recurrent pancreatitis. Fever informed by the nurse around 8 PM that the patient is having visual hallucinations, after getting Dilaudid and he wants to leave AMA. Went to see the patient and had a detailed discussion with him. Patient was alert and oriented 3 but was having visual hallucinations and was seeing people are trying to hurt him. He did not want to get back to his room as he does not feel safe there. Patient agreed to stay if he changes from room and also have a one- to-one sitter for him. We were again paged by the nurse stating that the patient continues to have Visual hallucinations and wants to leave. Dr. Mcintosh was informed of the above events and we were told that we can call the security if needed as the patient is not safe to leave AMA while having active visual hallucinations. Security was called and the patient was put into hard restraints as the patient was being combative around 1 am and was trying to leave the hospital. Patient was complaining of chest discomfort, heaviness and palpitations after he was put into the restraints and transferred back to his room. Blood pressure was 136/92, heart rate 122 and temperature 98.4 at that time. Plan; - Patient was given 1 time dose of 2 mg IM Ativan. - Continue 1:1 sitter - Hard restraints x 4. - Discontinue Dilaudid, avoid opiates. - Troponins and EKG 1 ordered. - Mother at bedside, informed and agrees with the plan.
[2018-05-21 02:00] VITALS: BP 132/92
[2018-05-21 06:29] VITALS: BP 156/96
--- NOTE | 2018-05-21 07:41 | PN- Housestaff ---
Jose Kirk 05/21/18 0740: Subjective Follow-up For: Pancreatitis Subjective: Patient began hallucinating last night and requested to change his room as he felt unsafe. Patient's room was changed but he continued to get up and try to leave, security was called and he was placed in restraints. Was given Ativan. Dilaudid was discontinued and opiates were avoided. Complained of chest pains stat EKG was ordered troponins were ordered which were negative. Refer to event notes for further clarification. Patient was asked about his pain, bowel habitus, nausea, vomiting. Patient was verbally abusive and was unable to answer questions. Remained tachycardic overnight. Was afebrile. Review of Systems Constitutional: Reports: see HPI. Objective Last 24 Hrs of Vital Signs/I&O Vital Signs Date Time Temp Pulse Resp B/P B/P Pulse O2 O2 Flow FiO2 Mean Ox Delivery Rate 05/21 819 118 158/98 05/21 08 118 158/98 05/21 0629 99.0 114 20 156/96 96 Room Air 05/21 0200 98.8 127 18 132/92 96 Room Air 05/20 2018 99.1 110 20 158/98 95 Room Air 05/20 1912 98.5 111 18 150/90 93 Room Air 05/20 1500 98.4 108 18 138/90 95 Intake & Output 05/21 1600 05/21 0800 05/21 0000 Intake Total 225 Output Total 125 Balance 100 Intake, IV 225 Output, Urine 125 Physical Exam General Appearance: Alert, Moderate Distress, Agitated Skin: flushed Skin Temp/Moisture Exam: Hot/Diaphoretic HEENT: Mucous Membr. moist/pink Cardiovascular: Normal S1, Normal S2, tachycardic Lungs: Clear to Auscultation, Normal Air Movement Abdomen: Soft, mild ttp Neurological: Sensation Intact Extremities: No Cyanosis, 4 point restraints Current Medications: Current Medications Sig/Inge Start time Last Medication Dose Route Stop Time Status Admin Acetaminophen 650 MG Q6-PRN PRN 05/20 2200 AC PO Amlodipine Besylate 5 MG DAILY 05/19 900 AC 05/20 PO 0830 Artificial Tears 2 GTT Q2 PRN 05/19 0615 AC 05/19 OPH 0911 Aspirin 81 MG DAILY 05/18 900 AC 05/20 PO 0831 Diphenhydramine HCl 50 MG 05/21 0930 DC 05/21 IV 05/21 0931 0942 Fenofibrate 48 MG DAILY 05/19 0900 AC 05/20 PO 0830 Haloperidol 5 MG ONCE ONE 05/21 1015 DC 05/21 IM 05/21 1016 1044 Haloperidol 1 MG ONCE ONE 05/21 0900 DC 05/21 IM 05/21 0901 0858 Haloperidol 1 MG ONCE ONE 05/21 0815 DC 05/21 IM 05/21 0816 0820 Haloperidol 5 MG ONCE ONE 05/21 0800 CAN IM 05/21 0801 Hydromorphone HCl 1 MG Q4P PRN 05/20 1915 DC 05/20 IV 2029 Hydromorphone HCl 2 MG Q4P PRN 05/18 1230 DC 05/20 IV 1423 Lactated Ringer's 1,000 ML Q13H 05/20 1045 AC 05/21 IV 0203 Lorazepam 2 MG Q6 05/21 1200 AC PO Lorazepam 2 MG ONE ONE 05/21 0930 DC 05/21 IV 05/21 0931 0942 Lorazepam 2 MG ONCE ONE 05/21 0100 DC 05/21 IM 05/21 0101 0103 Lorazepam 0.5 MG TID 05/18 2100 DC 05/21 PO 05/25 2059 0819 Losartan Potassium 100 MG DAILY 05/18 0900 AC 05/21 PO 0819 Melatonin 5 MG ONCE ONE 05/20 2200 DC PO 05/20 2201 Metoprolol Tartrate 75 MG BID 05/19 0900 AC 05/20 PO 2024 Morphine Sulfate 2 MG Q6P PRN 05/18 0300 AC 05/20 IV 0408 Ondansetron HCl 4 MG ONCE ONE 05/20 2030 DC 05/20 IV 05/20 2031 2025 Ondansetron HCl 4 MG Q6P PRN 05/18 1645 AC 05/20 IV 1553 Patient Medication 1 ED ONE ONE 05/21 1015 DC Teaching ED 05/21 1016 Rosuvastatin Calcium 20 MG 1700 05/18 1700 AC 05/18 PO 1605 Last 24 Hrs of Lab/Scooter Results Last 24 Hrs of Labs/Mics: Laboratory Tests 05/21/18 1050: Sodium Pending, Potassium Pending, Chloride Pending, Carbon Dioxide Pending, Anion Gap Pending, BUN Pending, Creatinine Pending, BUN/Creatinine Ratio Pending , CBC w Diff Pending, WBC Pending, RBC Pending, Hgb Pending, Hct Pending, MCV Pending, MCH Pending, MCHC Pending, RDW Pending, Plt Count Pending, MPV Pending 05/21/18 0125: Troponin I < 0.01 Assessment/Plan Assessment: 47yo M HTN CAD [place], h/o medicine induced pancreatitis 2 years ago admitted for acute pancreatitis. Patient is agitated - we will have to workup whether this is delirium or something else. -Agitation -Holding opiates -Psych consult appreciated will follow up based on recommendations -We will attempt to get labs however patient has been agitated. Will follow up. -Low threshold for Ativan +/- haldol given aggression -Pancreatitis -LR @ 75cc/hr. we will continue to monitor regarding fluid retention and respiratory compromise -Unsure whether to continue with HIDA scan or obtain CT scan based on patient agitation. Did not go for HIDA scan today as aggressive towards staff. -Currently tolerating full liquid diet, consider advancing to low fat -We will hold opiates in light of current agitation -Zofran PRN for nausea -RUQ U/S and CT neg -Will F/U on IgG -Remained afebrile overnight -Tachycardia -Cardio consult appreciated. Will continue metoprolol 75mg po BID. -Transaminitis Resolved -HTN -Amlodipine and Losartan. High but could be due to patient agitation -DVT PPx: F/u labs re platelets, ALPS Problem List: 1. Pancreatitis Pain Ratin Pain Location: "all over" Pain Goal: Pain 4 or less Pain Plan: PRN Tomorrow's Labs & Rationales: CBC, questionable CK MariaBob 05/21/18 1030: Attending MD Review Statement Attending Statement Attending MD Statement: examined this patient, discuss w/resident/PA/BOX ANNEALER, agreed w/resident/PA/BOX ANNEALER, discussed with family, reviewed EMR data (avail), discussed with nursing, discussed with case mgmt, reviewed images, amended to note Attending Assessment/Plan: Patient is here admitted with recurrent idipathic pancreatitis scheduled to have HIDA scan for biliary dyskinesia and rule out other causes. GI on board. Patient agitated overnight and this morning. Patient reportedly abusive and aggressive towards housesatff and nursing. Patient is hallucinating. Patient received halodol 2mg overnight. Will give ativan to calm him down. Obtain pysch consult. HR tachycardia+ persistent since admission. Cardiology consulted and recommend metoprolol. Hypertension uncontrolled 2/2 pain or agitation. If needs iv meds to control then consider transfer to telemetry. Follow GI and cardiology recommendations.
--- NOTE | 2018-05-21 10:23 | Cons- Psychiatry ---
Psychiatric Consult Date of Consult: 05/21/18 Reason for Consult: Sudden onset of delirium History of Present Illness: No history is obtainable from the patient. The patient's medical records were reviewed. He is a 47-year-old male who was admitted on May 17 with the gradual onset of persistent epigastric pain radiating to the back and persistent nausea and vomiting. He has been diagnosed with pancreatitis. The etiology of this has been unclear. This is the patient' s second episode of pancreatitis. Patient is also had an associated tachycardia since admission. Today the patient believes that he is in [place], he is here for a libertarian. Believes there are cigarettes that are going to set fire to my dress if someone does not put them out. The patient is not on any psychiatric medications. There is no known history of alcohol abuse. Allergies: Coded Allergies: No Known Allergies (05/17/18) Past History Past Medical History Any Pertinent Medical History? unobtainable Cardiovascular: CAD, S/P Stent Placement (non-eluting) 2014 Gastrointestinal: pancreatitis, Hepatic Steatosis Past Surgical History Surgical History: non-contributory Assessment/Plan Mental Status Orientation: Confused Affect: Anxious (agitated) Speech: WNL Mental Status Exam: 47 yo male seen in hospital bed. Patient in physical restraints. Agitated, picking at the bedclothes, states that he sees cigarettes on fire coming towards him addressed. Disoriented to person, time and place. Believe that he is in [place] for a libertarian and that it is still the . Eye contact is good. Speech is normal in rate, rhythm, volume and tone is normal in tempo, stream and form. The patient is experiencing visual hallucinations and also evidences delusions. He is a risk to both himself and others. Insight is absent. Judgment impaired. Lab Results: Lab Hct 35.4 % L 05/21/18 1050 Hgb 12.0 G/DL L 05/21/18 1050 MCH 32.4 PG H 05/21/18 1050 MCV 95.4 FL H 05/21/18 1050 RBC 3.71 /CUMM L 05/21/18 1050 WBC 8.1 /CUMM 05/21/18 1050 Med Lab ALT 234 U/L H 05/17/18 2150 ALT 163 U/L H 05/18/18 0732 ALT 97 U/L H 05/19/18 0700 ALT 92 U/L H 05/20/18 0800 AST 199 U/L H 05/17/18 2150 AST 141 U/L H 05/18/18 0732 AST 80 U/L H 05/19/18 0700 AST 70 U/L H 05/20/18 0800 Amylase 376 U/L H 05/17/18 2150 Lipase 9711 U/L H 05/17/18 2150 Diffential Diagnosis: 1. Delirium of unknown etiology. The highest index of suspicion is for an alcohol induced pancreatitis. This is the patient's second episode of pancreatitis. Liver enzymes, MCV and MCH were all elevated on admission. The patient has had a persistent tachycardia. He has been receiving low-dose benzodiazepines. -Of note the patient has been receiving high doses of opiates for analgesia. Impression: Delirium of unknown etiology. Highest index of suspicion is for alcohol withdrawal, the patient being currently in delirium tremens. Provisional Treatment Plan: -Continue work of delirium as per medical team -Manage delirium with haloperidol 5 mg po/IM every 6 hours for agitation or confusion -Cover for alcohol withdrawal by starting the patient on lorazepam 2 mg p.o. every 6 hours today. - Suggest reducing tomorrow based on symptoms and tapering over the next 4 or 5 days. Thank you for consulting us on this patient. Psychiatry will continue to follow.
[2018-05-21 11:32] LABS: ABSOLUTE BASOPHIL COUNT 0 /CUMM (0.0-0.2); ABSOLUTE EOSINOPHIL COUNT 0.1 /CUMM (0.0-0.7); ABSOLUTE GRANULOCYTE CT 6.6 /CUMM (1.4-6.5); ABSOLUTE LYMPH COUNT 0.5 /CUMM (1.2-3.4); ABSOLUTE MONOCYTE COUNT 0.9 /CUMM (0.10-0.60); BASOPHIL % 0.2 % (0.0-2.0); EOSINOPHIL % 0.7 % (0-5); GRANULOCYTE % 81.5 % (42.2-75.2); HEMATOCRIT 35.4 % (42-52); MEAN CORPUSCULAR HGB 32.4 PG (27.0-31.0); MEAN CORPUSCULAR VOLUME 95.4 FL (80.0-94.0); MEAN PLATELET VOLUME 10.3 FL (7.4-10.4); PLATELET COUNT 140 /CUMM (130-400); RBC DISTRIBUTION WIDTH 14.2 % (11.5-14.5); RED BLOOD CELL CT 3.71 /CUMM (4.70-6.10); WHITE BLOOD CELL COUNT 8.1 /CUMM (4.8-10.8)
[2018-05-21 11:58] VITALS: BP 150/90
[2018-05-21 17:00] VITALS: BP 146/88
[2018-05-22 07:05] VITALS: BP 146/82
--- NOTE | 2018-05-22 08:22 | PN- Housestaff ---
Jose Kirk 05/22/18821: Subjective Follow-up For: pancreatitis Subjective: Patient continues to be in 4 point restraints overnight. Per psychiatry CIWA protocol was started. Patient had CIWA score of 13-21 throughout the night. Patient received a total of 8.5 mg of Ativan. 6 mg IV 2 mg IM 0.5 mg p.o. Patient continues to refuse labs and refused p.o. medications. Continues to hallucinate needs to be unpredictable towards staff. Does deny any abdominal pain. States that there is no more pain rating toward his back anymore. States that he feels dry. Denies fevers/ chills /night sweats /chest pain /pain with urination/ pain with defecation. Review of Systems Constitutional: Reports: see HPI. Objective Last 24 Hrs of Vital Signs/I&O Vital Signs Date Time Temp Pulse Resp B/P B/P Pulse O2 O2 Flow FiO2 Mean Ox Delivery Rate 05/22 1444 84 05/22 1400 79 05/22 1200 90 05/22 1145 96 05/22 1100 84 05/22 1000 91 05/22 0938 81 05/22 0905 80 05/22 0800 76 05/22 0705 98.4 88 20 146/82 98 Room Air 05/21 1700 88 18 146/88 95 Room Air Intake & Output 05/22 1600 05/22 0800 05/22 0000 Intake Total 700 600 300 Output Total 400 900 800 Balance 300 -300 -500 Intake, IV 600 600 300 Intake, Oral 100 Output, Urine 400 900 800 Physical Exam General Appearance: Alert, uncooperative, aggressive Skin: diaphoretic Skin Temp/Moisture Exam: Hot/Diaphoretic Cardiovascular: Regular Rate, Normal S1, Normal S2 Lungs: Clear to Auscultation, Normal Air Movement Abdomen: Soft, No Tenderness Extremities: No Edema Current Medications: Current Medications Sig/Inge Start time Last Medication Dose Route Stop Time Status Admin Acetaminophen 650 MG Q6-PRN PRN 05/20 2200 AC PO Amlodipine Besylate 5 MG DAILY 05/19 09 AC 05/20 PO 0830 Artificial Tears 2 GTT Q2 PRN 05/19 0615 AC 05/19 OPH 0911 Aspirin 81 MG DAILY 05/18 09 AC 05/20 PO 0831 Benztropine Mesylate 0.5 MG TID 05/22 1400 AC 05/22 PO 1428 Benztropine Mesylate 0.5 MG TID 05/22 1400 DC IM Benztropine Mesylate 0.5 MG TID PRN 05/22 1345 AC IM Fenofibrate 48 MG DAILY 05/19 0900 AC 05/20 PO 0830 Haloperidol 5 MG TID 05/22 1400 AC 05/22 PO 1427 Haloperidol 5 MG TID 05/22 1400 DC IM Haloperidol 5 MG TID PRN 05/22 1345 AC IM Haloperidol 5 MG .STK-MED ONE 05/21 1802 DC IM 05/21 1803 Haloperidol 5 MG Q6P PRN 05/21 1530 DC 05/21 IM 1905 Heparin Sodium 5,000 UNIT Q8 05/22 1400 AC 05/22 (Porcine) SC 1437 Lactated Ringer's 1,000 ML Q13H 05/20 1045 AC 05/22 IV 0210 Lorazepam 2 MG TID 05/22 1400 AC 05/22 PO 1436 Lorazepam 2 MG Q6 05/22 0600 DC PO Lorazepam 0 Q1P PRN 05/22 0430 AC 05/22 IV 1149 Lorazepam 2 MG .STK-MED ONE 05/21 1802 DC IV 05/21 1803 Lorazepam 2 MG Q6P PRN 05/21 1527 DC 05/22 IV 0413 Losartan Potassium 100 MG DAILY 05/18 09 AC 05/21 PO 0819 Metoprolol Tartrate 75 MG BID 05/19 0900 AC 05/21 PO 2041 Morphine Sulfate 2 MG Q6P PRN 05/18 0300 AC 05/20 IV 0408 Ondansetron HCl 4 MG Q6P PRN 05/18 1645 AC 05/20 IV 1553 Rosuvastatin Calcium 20 MG 1700 05/18 1700 AC 05/18 PO 1605 Last 24 Hrs of Lab/Scooter Results Last 24 Hrs of Labs/Mics: Laboratory Tests 05/22/18 0600: CBC w Diff Cancelled, WBC Cancelled, RBC Cancelled, Hgb Cancelled, Hct Cancelled , MCV Cancelled, MCH Cancelled, MCHC Cancelled, RDW Cancelled, Plt Count Cancelled, MPV Cancelled Assessment/Plan Assessment: 47yo M HTN CAD [place], h/o medicine induced pancreatitis 2 years ago admitted for acute pancreatitis and now presumed alcohol withdrawal. Patient continues to be agitated, however pancreatitis seems to be resolving. -Agitation -Holding opiates -Psych consult appreciated -will follow CIWA protocol, will give Haldol and Cogentin. -Continues to refuse labs, p.o. medications. -Low threshold for Ativan +/- haldol given aggression -Pancreatitis -LR @ 75cc/hr. -HIDA is held. we will reorder when patient is no longer aggressive. -Currently tolerating full liquid diet, consider advancing to low fat -Zofran PRN for nausea -RUQ U/S and CT neg -Remained afebrile overnight -Tachycardia -Cardio consult appreciated. Will continue metoprolol 75mg po BID. patient was not tachycardic overnight. -Transaminitis Resolved -HTN -Amlodipine and Losartan. High but could be due to patient agitation -DVT PPx: Patient is restarted on heparin due to immobility. Problem List: 1. Pancreatitis Pain Ratin Pain Location: na Pain Goal: Pain 4 or less Pain Plan: prn Tomorrow's Labs & Rationales: na-patient refusing Bob Sifuentes 05/22/18 1052: Attending MD Review Statement Attending Statement Attending MD Statement: examined this patient, discuss w/resident/PA/GEAR CODING MACHINE OPERATOR, agreed w/resident/PA/GEAR CODING MACHINE OPERATOR, discussed with family, reviewed EMR data (avail), discussed with nursing, discussed with case mgmt, reviewed images, amended to note Attending Assessment/Plan: Patient seen/examined bedside. Patient still active hallucinations. He is aaox 2 oriented. Overnight CIWA high and received ativan 8 mg in past 24 hrs. Patient however with improvement in tachycardia and bp mildly controlled. HIs PCP denies ?alcohol abuse but gave him precriptions for bzd for anxiety. Pancreatiits has shown improvement over past few days as he is able to tolerate PO and walkng around the [place] on Monday. HIDA scan was scheduled but postponed now. Hallucinations/tremors: Pyshc has been consulted and contineu with haldol and ativan for supportive care. Patient is slowly respoding to delirium/withdrawal likely BZD treatment. Continue close monitoring, reassess restraints, fall precautions.
--- NOTE | 2018-05-22 11:20 | PN- Psychiatry ---
Assessment/Plan Impression: Patient remains delirious. He is hallucinating visibly and is currently in 4 point restraints. He had 8.5 mg of lorazepam yesterday as well as a total of 12 mg of haloperidol. The underlkying cause of his delirium remains unknown. Per medical team, pt's PCP denies that he has a history of alcohol abuse. Only known substance use is reported occasional benzodiazepine use. Tachycardia has resolved, blood pressure is normal. Suggestion: - We will manage delirium with haloperdol, ideally po but IM if necessary. Haloperidol 5 mg p.o. 3 times a day p.o./IM. Give with benztropine 0.5 mg due to risk of acute dystonia. - Will reduce benzodiazepines gradually. Lorazepam 2 mg 3 times a day. Judicious use of as needed lorazepam as sedation can increase clouding of consciousness. - Continue work up for etiology of delirium per medical team. - Work up re etioalogy of recurrent pancreatitis ongoing Subjective Subjective: The patient is in four-point restraints and is delirious. No history is available from the patient. Review of Systems: The patient is disoriented to person, place and time. He is currently calm, sedated. He is in 4 point restraints. Visual hallucinations are evident. The patient has no insight and his judgment is impaired. Objective Last 24 Hrs of Vital Signs/I&O Vital Signs Date Time Temp Pulse Resp B/P B/P Pulse O2 O2 Flow FiO2 Mean Ox Delivery Rate 05/22 0938 81 / 0905 80 05/22 0800 76 / 0705 98.4 88 20 146/82 98 Room Air 05/21 1700 88 18 146/88 95 Room Air 05/21 1158 98.5 94 20 150/90 95 Room Air Intake & Output 05/22 1600 05/22 0800 05/22 0000 Intake Total 600 300 Output Total 900 800 Balance -300 -500 Intake, IV 600 300 Output, Urine 900 800 Physical Exam General Appearance: sedated Current Medications: Med Acetaminophen 650 MG PO Q6-PRN PRN 05/20/18 2200 Amlodipine Besylate 5 MG PO DAILY 05/19/18 09 Artificial Tears 2 GTT OPH Q2 PRN 05/19/18 0615 Aspirin 81 MG PO DAILY 05/18/18 0900 Fenofibrate 48 MG PO DAILY 05/19/18 0900 Haloperidol 5 MG IM Q6P PRN 05/21/18 1530 Lactated Ringer's 1,000 ML IV Q13H 05/20/18 1045 Lorazepam IV Q1P PRN 05/22/18 0430 Losartan Potassium 100 MG PO DAILY 05/18/18 0900 Metoprolol Tartrate 75 MG PO BID 05/19/18 0900 Morphine Sulfate 2 MG IV Q6P PRN 05/18/18 0300 Ondansetron HCl 4 MG IV Q6P PRN 05/18/18 1645 Rosuvastatin Calcium 20 MG PO 1700 05/18/18 1700 Results Last 24 Hrs of Labs/Mics: Lab Free T4 1.35 ng/dL 05/21/18 1050 Potassium 3.4 mmol/L L 05/21/18 1050 TSH 1.740 uIU/mL 05/21/18 1050 Total T3 0.99 ng/mL 05/21/18 1050 Absolute Granulocytes 6.6 /CUMM H 05/21/18 1050 Absolute Lymphocytes 0.5 /CUMM L 05/21/18 1050 Absolute Monocytes 0.9 /CUMM H 05/21/18 1050 Hct 35.4 % L 05/21/18 1050 Hgb 12.0 G/DL L 05/21/18 1050 Lymphocytes % 6.5 % L 05/21/18 1050 MCH 32.4 PG H 05/21/18 1050 MCV 95.4 FL H 05/21/18 1050 Monocytes % 11.1 % H 05/21/18 1050 RBC 3.71 /CUMM L 05/21/18 1050 WBC 8.1 /CUMM 05/21/18 1050
--- NOTE | 2018-05-22 17:02 | PN- Gastroenterology ---
Assessment/Plan GI Assessment/Recommendations: Acute, recurrent pancreatitis. The patient is hungry and thirsty, and pain- free. Recommendations * Begin low-fat diet * Continue evaluation of delirium * Hold narcotic analgesics Subjective Subjective: The patient has been suffering delirium, which is under evaluation. He currently denies abdominal pain and nausea. He is hungry/thirsty. Objective Vital Signs and I&Os Vital Signs Date Time Temp Pulse Resp B/P B/P Pulse O2 O2 Flow FiO2 Mean Ox Delivery Rate 05/22 1444 84 05/22 1400 79 05/22 1200 90 05/22 1145 96 05/22 1100 84 05/22 1000 91 05/22 0938 81 05/22 0905 80 05/22 0800 76 05/22 0705 98.4 88 20 146/82 98 Room Air 05/21 1700 88 18 146/88 95 Room Air Intake & Output 05/22 1600 05/22 0400 05/21 1600 05/21 0400 05/20 1600 05/20 0400 Intake Total 1300 921 726 1135 1850 Output Total 1300 331 910 2596 Balance 0 -500 -50 930 1850 Intake, IV 1200 542 503 8768 1050 Intake, Oral 100 0 890 800 Output, Urine 1300 124 993 7598 Physical Exam: Slightly diaphoretic. Sclera anicteric. Abdomen mildly distended, soft, normal bowel sounds, nontender. Current Medications: Current Medications Sig/Inge Start time Last Medication Dose Route Stop Time Status Admin Acetaminophen 650 MG Q6-PRN PRN 05/20 2200 AC PO Amlodipine Besylate 5 MG DAILY 05/19 09 AC 05/20 PO 0830 Artificial Tears 2 GTT Q2 PRN 05/19 0615 AC 05/19 OPH 0911 Aspirin 81 MG DAILY 05/18 09 AC 05/20 PO 0831 Benztropine Mesylate 0.5 MG TID 05/22 1400 AC 05/22 PO 1428 Benztropine Mesylate 0.5 MG TID 05/22 1400 DC IM Benztropine Mesylate 0.5 MG TID PRN 05/22 1345 AC IM Fenofibrate 48 MG DAILY 05/19 0900 AC 05/20 PO 0830 Haloperidol 5 MG TID 05/22 1400 AC 05/22 PO 1427 Haloperidol 5 MG TID 05/22 1400 DC IM Haloperidol 5 MG TID PRN 05/22 1345 AC IM Haloperidol 5 MG .STK-MED ONE 05/21 1802 DC IM 05/21 1803 Haloperidol 5 MG Q6P PRN 05/21 1530 DC 05/21 IM 1905 Heparin Sodium 5,000 UNIT Q8 05/22 1400 AC 05/22 (Porcine) SC 1437 Lactated Ringer's 1,000 ML Q13H 05/20 1045 AC 05/22 IV 1623 Lorazepam 2 MG TID 05/22 1400 AC 05/22 PO 1436 Lorazepam 2 MG Q6 05/22 0600 DC PO Lorazepam 0 Q1P PRN 05/22 0430 AC 05/22 IV 1149 Lorazepam 2 MG .STK-MED ONE 05/21 1802 DC IV 05/21 1803 Lorazepam 2 MG Q6P PRN 05/21 1527 DC 05/22 IV 0413 Losartan Potassium 100 MG DAILY 05/18 0900 AC 05/21 PO 0819 Metoprolol Tartrate 75 MG BID 05/19 0900 AC 05/21 PO 2041 Morphine Sulfate 2 MG Q6P PRN 05/18 0300 AC 05/20 IV 0408 Ondansetron HCl 4 MG Q6P PRN 05/18 1645 AC 05/20 IV 1553 Rosuvastatin Calcium 20 MG 1700 05/18 1700 AC 05/18 PO 1605 Results Pertinent Lab Results: Laboratory Tests 05/22 05/21 05/21 0600 1050 0125 Chemistry Sodium (137 - 145 mmol/L) 141 Potassium (3.5 - 5.1 mmol/L) 3.4 L Chloride (98 - 107 mmol/L) 102 Carbon Dioxide (22 - 30 mmol/L) 28 Anion Gap (5 - 16) 11 BUN (9 - 20 mg/dL) 9 Creatinine (0.7 - 1.2 mg/dL) 0.8 Estimated GFR (>60 ml/min) > 60 BUN/Creatinine Ratio (7 - 25 %) 11.3 Magnesium (1.6 - 2.3 mg/dL) 2.1 Troponin I (<0.11 ng/ml) < 0.01 TSH (0.270 - 4.200 uIU/mL) 1.740 Free T4 (0.64 - 1.79 ng/dL) 1.35 Total T3 (0.97 - 1.69 ng/mL) 0.99 Hematology CBC w Diff Cancelled NO MAN DIFF REQ WBC (4.8 - 10.8 /CUMM) Cancelled 8.1 RBC (4.70 - 6.10 /CUMM) Cancelled 3.71 L Hgb (14.0 - 18.0 G/DL) Cancelled 12.0 L Hct (42 - 52 %) Cancelled 35.4 L MCV (80.0 - 94.0 FL) Cancelled 95.4 H MCH (27.0 - 31.0 PG) Cancelled 32.4 H MCHC (33.0 - 37.0 G/DL) Cancelled 34.0 RDW (11.5 - 14.5 %) Cancelled 14.2 Plt Count (130 - 400 /CUMM) Cancelled 140 MPV (7.4 - 10.4 FL) Cancelled 10.3 Gran % (42.2 - 75.2 %) 81.5 H Lymphocytes % (20.5 - 51.1 %) 6.5 L Monocytes % (1.7 - 9.3 %) 11.1 H Eosinophils % (0 - 5 %) 0.7 Basophils % (0.0 - 2.0 %) 0.2 Absolute Granulocytes (1.4 - 6.5 /CUMM) 6.6 H Absolute Lymphocytes (1.2 - 3.4 /CUMM) 0.5 L Absolute Monocytes (0.10 - 0.60 /CUMM) 0.9 H Absolute Eosinophils (0.0 - 0.7 /CUMM) 0.1 Absolute Basophils (0.0 - 0.2 /CUMM) 0 07/01 0800 Chemistry Sodium (137 - 145 mmol/L) 140 Potassium (3.5 - 5.1 mmol/L) 3.9 Chloride (98 - 107 mmol/L) 102 Carbon Dioxide (22 - 30 mmol/L) 25 Anion Gap (5 - 16) 13 BUN (9 - 20 mg/dL) 6 L Creatinine (0.7 - 1.2 mg/dL) 0.8 Estimated GFR (>60 ml/min) > 60 BUN/Creatinine Ratio (7 - 25 %) 7.5 Total Bilirubin (0.2 - 1.3 mg/dL) 1.0 Direct Bilirubin (< 0.4 mg/dL) 0.4 AST (17 - 59 U/L) 70 H ALT (21 - 72 U/L) 92 H Alkaline Phosphatase (< 127 U/L) 79 Total Protein (6.3 - 8.2 g/dL) 5.9 L Albumin (3.5 - 5.0 g/dL) 3.4 L Coagulation PT (9.4 - 12.5 SEC) 11.1 INR (0.90 - 1.17) 1.02 Hematology CBC w Diff NO MAN DIFF REQ WBC (4.8 - 10.8 /CUMM) 13.0 H RBC (4.70 - 6.10 /CUMM) 4.14 L Hgb (14.0 - 18.0 G/DL) 13.4 L Hct (42 - 52 %) 39.5 L MCV (80.0 - 94.0 FL) 95.6 H MCH (27.0 - 31.0 PG) 32.3 H MCHC (33.0 - 37.0 G/DL) 33.8 RDW (11.5 - 14.5 %) 14.1 Plt Count (130 - 400 /CUMM) 119 L MPV (7.4 - 10.4 FL) 10.3 Gran % (42.2 - 75.2 %) 84.6 H Lymphocytes % (20.5 - 51.1 %) 5.5 L Monocytes % (1.7 - 9.3 %) 8.6 Eosinophils % (0 - 5 %) 0.9 Basophils % (0.0 - 2.0 %) 0.4 Absolute Granulocytes (1.4 - 6.5 /CUMM) 11.0 H Absolute Lymphocytes (1.2 - 3.4 /CUMM) 0.7 L Absolute Monocytes (0.10 - 0.60 /CUMM) 1.1 H Absolute Eosinophils (0.0 - 0.7 /CUMM) 0.1 Absolute Basophils (0.0 - 0.2 /CUMM) 0
[2018-05-22 20:38] VITALS: BP 160/96
[2018-05-22 22:15] VITALS: BP 162/100
[2018-05-23] VITALS (8 sets, daily range): BP systolic 128–158; BP diastolic 70–110
--- NOTE | 2018-05-23 10:12 | PN- Housestaff ---
See Addendum Subjective Follow-up For: Pancreatitis Alcohol withdrawal Subjective: Overnight patient was switched to point restraints. Patient attempted to kick staff. Was switched back to four-point soft restraints. Additionally patient was hypertensive overnight 150 systolic over 100-110 diastolic. Patient was given 5 mg amlodipine once. Continues to be aggressive to staff, however upon examination this morning was cooperative. Denies any abdominal pain. Denies any vomiting or any back pain. Denies fevers/chills/night sweats/headache/chest pain/shortness of breath/pain with urination. Review of Systems Constitutional: Reports: see HPI. Objective Last 24 Hrs of Vital Signs/I&O Vital Signs Date Time Temp Pulse Resp B/P B/P Pulse O2 O2 Flow FiO2 Mean Ox Delivery Rate 05/23 09 146/88 05/23 09 146/88 05/23 0600 99.1 87 22 158/98 95 Room Air 05/23 0548 87 158/98 / 0224 150/100 / 0200 90 150/100 / 0142 150/110 / 0130 93 150/110 07/03 2215 98.0 93 18 162/100 95 Room Air / 2038 102 160/96 07/ 1444 84 07/03 1400 79 07/03 1200 90 07/03 1145 96 07/03 1100 84 Intake & Output 05/23 1600 /04 0800 05/23 0000 Intake Total 400 1800 Output Total 300 850 Balance 100 950 Intake, IV 600 Intake, Oral 400 1200 Number 0 Bowel Movements Output, Urine 300 850 Physical Exam General Appearance: Alert, Cooperative, No Acute Distress Skin Temp/Moisture Exam: Hot/Diaphoretic Cardiovascular: Regular Rate, Normal S1, Normal S2 Lungs: Normal Air Movement, fine wheeze b/l upper lobe Abdomen: Soft, No Tenderness Extremities: No Edema Current Medications: Current Medications Sig/Inge Start time Last Medication Dose Route Stop Time Status Admin Acetaminophen 650 MG Q6-PRN PRN 05/20 2200 AC PO Amlodipine Besylate 5 MG ONCE ONE 05/23 0300 DC 05/23 PO 05/23 0301 0548 Amlodipine Besylate 5 MG DAILY 05/19 09 AC 05/23 PO 0904 Artificial Tears 2 GTT Q2 PRN 05/19 06 AC 05/19 OPH 0911 Aspirin 81 MG DAILY 05/18 0900 AC 05/23 PO 0904 Benztropine Mesylate 0.5 MG TID 05/22 1400 AC 05/23 PO 0904 Benztropine Mesylate 0.5 MG TID 05/22 1400 DC IM Benztropine Mesylate 0.5 MG TID PRN 05/22 1345 AC IM Fenofibrate 48 MG DAILY 05/19 0900 AC 05/23 PO 0904 Haloperidol 5 MG TID 05/22 1400 AC 05/23 PO 0904 Haloperidol 5 MG TID 05/22 1400 DC IM Haloperidol 5 MG TID PRN 05/22 1345 AC IM Haloperidol 5 MG Q6P PRN 05/21 1530 DC 05/21 IM 1905 Heparin Sodium 5,000 UNIT Q8 05/22 1400 AC 05/23 (Porcine) SC 0532 Lactated Ringer's 1,000 ML Q13H 05/20 1045 AC 05/23 IV 0548 Lorazepam 2 MG TID 05/22 1400 AC 05/23 PO 0906 Lorazepam 2 MG Q6 05/22 0600 DC PO Lorazepam 0 Q1P PRN 05/22 0430 AC 05/23 IV 0146 Losartan Potassium 100 MG DAILY 05/18 0900 AC 05/23 PO 0904 Metoprolol Tartrate 75 MG BID 05/19 0900 AC 05/23 PO 0904 Morphine Sulfate 2 MG Q6P PRN 05/18 0300 AC 05/20 IV 0408 Ondansetron HCl 4 MG Q6P PRN 05/18 1645 AC 05/20 IV 1553 Rosuvastatin Calcium 20 MG 1700 05/18 1700 AC 05/22 PO 2034 Orders CIWA Score (last 24 hrs): Highest was 35: Nausea/vomiting 6 Tremors 4 Anxiety 4 Agitation 4 Sweating 4 Orientation 3 Assessment/Plan Assessment: 47yo M HTN CAD [place], h/o medicine induced pancreatitis 2 years ago admitted for acute pancreatitis and now presumed alcohol withdrawal. Patient continues to be agitated, however pancreatitis seems to be resolving. -Agitation -Holding opiates -Maintained in restraintspatient has attacked staff before, will discontinue when patient is no longer danger to self and staff -Psych consult appreciated -will continue Haldol and Cogentin. -CIWA protocolreceived 5 mg Ativan overnight 3 IV 2 p.o. -Per night nurse is now taking p.o. medication -Low threshold for Ativan +/- haldol given aggression -Pancreatitis -LR @ 75cc/hr. -HIDA is held. we will reorder when patient is no longer aggressive. -Currently tolerating low-fat diet -Zofran PRN for nausea -RUQ U/S and CT neg -Remained afebrile overnight -Tachycardia -Cardio consult appreciated. Will continue metoprolol 75mg po BID. -Transaminitis Resolved -HTN -Amlodipine and Losartan. High but could be due to patient agitation, was given 5 mg amlodipine overnight. Will consider adjusting. -DVT PPx: Heparin subq. Problem List: 1. Pancreatitis Pain Ratin Pain Location: na Pain Goal: Remain pain free Pain Plan: prn Tomorrow's Labs & Rationales: .
[2018-05-24 06:42] VITALS: BP 150/90
--- NOTE | 2018-05-24 08:54 | PN- Housestaff ---
Jose Kirk 05/24/18 0854: Subjective Follow-up For: Pancreatitis Subjective: Patient seen and examined at bedside. No acute events overnight. Patient receive 3 mg total of Ativan overnight, CIWA score of 4. 1 mg IV 2 mg p.o. Patient had no events of aggression overnight, was pleasant and conversational during interview. Patient denies complaints, states that the abdominal pain has resolved, states that he has some congestion but it is getting better. Patient' s oriented to person place and time, laughs and jokes appropriately. Is agreeable to plan for HIDA scan tomorrow. Review of Systems Constitutional: Reports: see HPI. EENTM: Reports: see HPI. Objective Last 24 Hrs of Vital Signs/I&O Vital Signs Date Time Temp Pulse Resp B/P B/P Pulse O2 O2 Flow FiO2 Mean Ox Delivery Rate 05/24 0642 99.0 86 20 150/90 97 Room Air 05/24 0000 Room Air 05/23 2305 94 / 2235 97.4 82 20 128/70 92 Room Air 05/23 2031 98.7 93 20 150/78 93 Room Air 05/23 1600 Room Air 07/ 1435 99.1 88 20 158/96 95 Intake & Output 05/24 1600 /05 0800 07/05 0000 Intake Total 1025 1430 Output Total 1350 1850 Balance -325 -420 Intake, IV 525 600 Intake, Oral 500 830 Number 1 Bowel Movements Output, Urine 1350 1850 Physical Exam General Appearance: Alert, Oriented X3, Cooperative, No Acute Distress Skin Temp/Moisture Exam: Warm/Dry Cardiovascular: Regular Rate, Normal S1, Normal S2, No Murmurs Lungs: Clear to Auscultation, Normal Air Movement Abdomen: Soft, No Tenderness Neurological: Sensation Intact Extremities: No Edema Current Medications: Current Medications Sig/Inge Start time Last Medication Dose Route Stop Time Status Admin Acetaminophen 650 MG Q6-PRN PRN 05/20 2200 AC PO Amlodipine Besylate 5 MG DAILY 05/19 09 AC 05/24 PO 0837 Artificial Tears 2 GTT Q2 PRN 05/19 0615 AC 05/19 OPH 0911 Aspirin 81 MG DAILY 05/18 09 AC 05/24 PO 0836 Benzonatate 100 MG ONCE ONE 05/24 215 DC 05/24 PO 05/24 021 0217 Benztropine Mesylate 0.5 MG BID 05/24 2100 AC PO Benztropine Mesylate 0.5 MG TID 05/22 1400 DC 05/24 PO 0836 Benztropine Mesylate 0.5 MG TID PRN 05/22 1345 DC IM Fenofibrate 48 MG DAILY 05/19 0900 AC 05/24 PO 0837 Haloperidol 5 MG BID 05/24 2100 AC PO Haloperidol 5 MG Q6-PRN PRN 05/24 1215 AC IM Haloperidol 5 MG TID 05/22 1400 DC 05/24 PO 0836 Haloperidol 5 MG TID PRN 05/22 1345 DC IM Heparin Sodium 5,000 UNIT Q8 05/22 1400 AC 05/24 (Porcine) SC 0559 Lactated Ringer's 1,000 ML Q13H 05/20 1045 AC 05/24 IV 0839 Lorazepam 1.5 MG TID 05/24 1400 AC PO Lorazepam 0.5 MG Q6-PRN PRN 05/24 1200 AC PO 05/31 1159 Lorazepam 2 MG TID 05/22 1400 DC 05/24 PO 0837 Lorazepam 0 Q1P PRN 05/22 0430 AC 05/23 IV 2307 Losartan Potassium 100 MG DAILY 05/18 0900 AC 05/24 PO 0836 Metoprolol Tartrate 75 MG BID 05/19 0900 AC 05/24 PO 0836 Morphine Sulfate 2 MG Q6P PRN 05/18 0300 AC 05/20 IV 0408 Ondansetron HCl 4 MG Q6P PRN 05/18 1645 AC 05/20 IV 1553 Rosuvastatin Calcium 20 MG 1700 05/18 1700 AC 05/23 PO 1815 Sodium Chloride 2 SPRAY ONCE ONE 05/24 0530 DC 05/24 NICOLAS 05/24 0531 0626 Assessment/Plan Assessment: Mr. Hernandez is a 47-year-old male with a past medical history of HTN CAD [place], h/o medicine induced pancreatitis 2 years ago, admitted for acute pancreatitis and suspected alcohol withdrawal. Patient agitation and pancreatitis seem to be resolving. -Agitation -Holding opiates -Patient is a longer in restraints, has not had any aggression overnight, will continue to keep the one-to-one. -Psych consult appreciated -will follow recommendations taper the Haldol and keep Ativan as needed -CIWA protocolreceived 3 mg Ativan overnight 1 mg IV 2 mg p.o. -Per night nurse is now taking p.o. medication -Low threshold for Ativan +/- haldol given aggression -Pancreatitis -LR @ 75cc/hr. -HIDA is scheduled for potentially tomorrow, patient will be n.p.o. after tonight in preparation. -Currently tolerating low-fat diet -Zofran PRN for nausea -RUQ U/S and CT neg -Remained afebrile overnight -Tachycardia -Cardio consult appreciated. Will continue metoprolol 75mg po BID. -Transaminitis Resolved -HTN -Amlodipine and Losartan. Patient continues to have elevated pressures, however is asymptomatic. We will considering adjust the dose. -DVT PPx: Heparin subq. Disposition Problem List: 1. Pancreatitis Pain Ratin Pain Location: NA Pain Goal: Remain pain free Pain Plan: As needed Tomorrow's Labs & Rationales: MARTY SifuentesLazaronadir 05/24/18 1109: Attending MD Review Statement Attending Statement Attending MD Statement: examined this patient, discuss w/resident/PA/SPLICING TECHNICIAN, agreed w/resident/PA/SPLICING TECHNICIAN, discussed with family, reviewed EMR data (avail), discussed with nursing, discussed with case mgmt, reviewed images, amended to note Attending Assessment/Plan: Pateint seen/examiend bedside. He denies any new complaints. He is off restrainst but sitter bedside. Denies any hallucinations to our team and nursing this morning. He is being actively managed for delirium tremens as per pyshc recommendations. Titrate haldol and ativan as per pyschiatry. Pancreatitis with improvement now, able to toelrate PO, no abdominal pain. Consider HIDA tommorrow, NPO after midnight. Benzodiapine withdrawal and possible alcohol withdrawal. More histroy obtained from co worker who suggested occasional alcohol drinks. Family update. Continue current care.. Reassess pysch with sitter and taper ativan for now.
--- NOTE | 2018-05-24 12:02 | PN- Psychiatry ---
Assessment/Plan Impression: Pt alert and oriented. Encountered eating breakfast. Pleasant and appropriate. Continues to deny any alcohol use prior to admission. Of note he has been taking benzodiazepines on a daily basis for anxiety. The patient declines referral to psychiatric outpatients for anxiety management. Advised the patient of the need for an alternative medication to lorazepam. The patient would prefer to discuss this with his primary care doctor on discharge. Suggestion: Taper haloperidol, cogentin and lorazepam. Discontinue iv lorazepam and aim to maintain on standing orders Lorazepam 0.5 mg po for mild agitation with aim of minimizing use Subjective Subjective: Patient reports feeling well. He has recollections of the perceptual abnormality of recent days. He reports being frightened. His symptoms have now fully resolved. Review of Systems: The patient is alert and oriented 3. He is calm and appropriate. Eye contact is good. Speech is normal in rate, rhythm, volume and tone. His mood is euthymic with congruent affect. He is not suicidal or homicidal. Thought process is normal in tempo, stream and form with no delusions or obsessions. Attention and concentration are good. There is no perceptual abnormality. Impulse control is good. Intelligence level is average, fund of knowledge average, use of language appropriate. Recent and remote memory are intact. Insight is good and judgment unimpaired. Objective Last 24 Hrs of Vital Signs/I&O Vital Signs Date Time Temp Pulse Resp B/P B/P Pulse O2 O2 Flow FiO2 Mean Ox Delivery Rate 05/24 1520 98.7 91 18 142/84 96 Room Air 07/ 0642 99.0 86 20 150/90 97 Room Air 07/ 0000 Room Air 05/23 2305 94 / 2235 97.4 82 20 128/70 92 Room Air 07/ 2031 98.7 93 20 150/78 93 Room Air / 1600 Room Air Intake & Output 05/24 1600 07/05 0800 07/05 0000 Intake Total 1410 1025 1430 Output Total 1350 1850 Balance 1410 -325 -420 Intake, IV 600 525 600 Intake, Oral 810 500 830 Number 1 1 Bowel Movements Output, Urine 1350 1850 Physical Exam: Well-documented elsewhere Physical Exam General Appearance: no apparent distress Head: atraumatic
--- NOTE | 2018-05-24 14:28 | PN- Gastroenterology ---
Assessment/Plan GI Assessment/Recommendations: Acute recurrent pancreatitis. Clinically resolved. Transaminitis, improved; not rechecked in the past few days. Known biopsy proven steatohepatitis. Recommendations * Continue low-fat diet * HIDA with ejection fraction, as per Dr. Whiteside's recommendation Thank you very much for allowing GI involvement in this patient's care. We will no longer follow the patient in hospital. Please call or reconsult as needed. Office follow-up will be arranged with Dr. Sanchez. Subjective Subjective: Without pain, nausea, vomiting. Objective Vital Signs and I&Os Vital Signs Date Time Temp Pulse Resp B/P B/P Pulse O2 O2 Flow FiO2 Mean Ox Delivery Rate 05/24 0642 99.0 86 20 150/90 97 Room Air 05/24 0000 Room Air 05/23 2305 94 05/23 2235 97.4 82 20 128/70 92 Room Air 05/23 2031 98.7 93 20 150/78 93 Room Air 05/23 1600 Room Air 05/23 1435 99.1 88 20 158/96 95 Intake & Output 05/24 1600 05/24 0400 05/23 1600 05/23 0400 05/22 1600 05/22 0400 Intake Total 2435 5034 623 8848 1300 300 Output Total 1350 1850 424 527 0563 800 Balance 1085 -420 -300 950 0 -500 Intake, IV 1125 466 553 3035 300 Intake, Oral 1310 837 084 5765 100 Number 1 1 0 Bowel Movements Output, Urine 1350 1850 476 065 6712 800 Physical Exam: Abdominal exam soft, nontender. Results Pertinent Lab Results: Laboratory Tests 05/22 0600 Chemistry Sodium Cancelled Potassium Cancelled Chloride Cancelled Carbon Dioxide Cancelled Anion Gap Cancelled BUN Cancelled Creatinine Cancelled BUN/Creatinine Ratio Cancelled Hematology CBC w Diff Cancelled WBC Cancelled RBC Cancelled Hgb Cancelled Hct Cancelled MCV Cancelled MCH Cancelled MCHC Cancelled RDW Cancelled Plt Count Cancelled MPV Cancelled
[2018-05-24 15:20] VITALS: BP 142/84
--- NOTE | 2018-05-24 15:22 | Patient Discharge Instructions ---
Discharge Instructions General Discharge Information Special Instructions: - Please follow up with your primary care physician within 1-2 weeks of discharge. Inform your primary care physician of this admission to [facility]. - Continue your current medications per discharge instructions. - Please watch for these problems: Fever, Chills, Nausea, Vomiting, Shortness of Breath, Productive Cough, Chest Pain/Discomfort, Abdominal Pain, Active Bleeding or Bloody urine/stool. Diet Continue normal diet: Yes Activity Full Activity/No Limits: Yes Acute Coronary Syndrome Inclusion Criteria At DC or during hospital stay patient has or had the following: ACS DIAGNOSIS No Discharge Core Measures Meds if any: Prescribed or Continued at Discharge Meds if any: NOT Prescribed or Continued at Discharge Congestive Heart Failure Inclusion Criteria At DC or during hospital stay patient has or had the following: CHF DIAGNOSIS No Discharge Core Measures Meds if any: Prescribed or Continued at Discharge Meds if any: NOT Prescribed or Continued at Discharge Cerebrovascular accident Inclusion Criteria At DC or during hospital stay patient has or had the following: CVA/TIA Diagnosis No Discharge Core Measures Meds if any: Prescribed or Continued at Discharge Meds if any: NOT Prescribed or Continued at Discharge Venous thromboembolism Inclusion Criteria VTE Diagnosis No VTE Type NONE VTE Confirmed by (Test) NONE Discharge Core Measures - Per Current guidelines, there needs to be overlap - treatment for the first 5 days of Warfarin therapy. - If discharged on Warfarin prior to 5 days of - overlap therapy, the patient will need to be - assessed for post discharge needs including - *Post discharge parental anticoagulation - *Warfarin and/or parental anticoagulation education - *Follow up date to check INR post discharge At least 5 days overlap therapy as Inpatient No Meds if any: Prescribed or Continued at Discharge Note: Overlap Therapy is Warfarin and Anticoagulant Meds if any: NOT Prescribed or Continued at Discharge
[2018-05-24 22:02] VITALS: BP 150/90
[2018-05-25 06:42] VITALS: BP 152/82
--- NOTE | 2018-05-25 07:12 | PN- Housestaff ---
Jose Kirk 05/25/18 07: Subjective Follow-up For: Pancreatitis Subjective: Examined at bedside. No new complaints overnight. Patient seems to be more lucid, pleasant, conversational. Denies fever/chills/night sweats/chest pain/ shortness of breath/abdominal pain/lower extremity edema. Was held n.p.o. overnight for HIDA scan today. No acute events. Review of Systems Constitutional: Reports: see HPI. Objective Last 24 Hrs of Vital Signs/I&O Vital Signs Date Time Temp Pulse Resp B/P B/P Pulse O2 O2 Flow FiO2 Mean Ox Delivery Rate 05/25 0811 94 150/108 / 0810 94 150/108 05/25 0800 Room Air 05/25 0742 97.5 94 20 150/108 98 Room Air / 0642 152/82 05/25 0201 80 170/110 / 2202 97.6 84 19 150/90 98 / 1520 98.7 91 18 142/84 96 Room Air Intake & Output 05/25 1600 05/25 0800 05/25 0000 Intake Total 720 120 Output Total Balance 720 120 Intake, IV 600 Intake, Oral 120 120 Patient 206 lb 206 lb Weight Weight Bed scale Measurement Method Physical Exam General Appearance: Alert, Oriented X3, Cooperative, No Acute Distress Skin Temp/Moisture Exam: Warm/Dry Cardiovascular: Regular Rate, Normal S1, Normal S2 Lungs: Clear to Auscultation, Normal Air Movement Abdomen: Soft, No Tenderness Neurological: Sensation Intact Extremities: No Edema Current Medications: Current Medications Sig/Inge Start time Last Medication Dose Route Stop Time Status Admin Acetaminophen 650 MG .STK-MED ONE 05/25 0130 DC PO 05/25 0131 Acetaminophen 650 MG Q6-PRN PRN 05/20 2200 AC 05/25 PO 0131 Amlodipine Besylate 10 MG DAILY 05/25 900 AC 05/25 PO 0810 Amlodipine Besylate 10 MG ONCE ONE 05/25 0145 DC 05/25 PO 05/25 0146 0201 Amlodipine Besylate 5 MG DAILY 05/19 09 DC 05/24 PO 0837 Artificial Tears 2 GTT Q2 PRN 05/19 0615 AC 05/25 OPH 0607 Aspirin 81 MG DAILY 05/18 09 AC 05/25 PO 0811 Benzonatate 100 MG .STK-MED ONE 05/24 1521 DC PO 05/24 1522 Benztropine Mesylate 0.5 MG BID 05/24 2100 AC 05/25 PO 0811 Benztropine Mesylate 0.5 MG TID 05/22 1400 DC 05/24 PO 0836 Benztropine Mesylate 0.5 MG TID PRN 05/22 1345 DC IM Fenofibrate 48 MG DAILY 05/19 0900 AC 05/25 PO 0810 Haloperidol 5 MG BID 05/24 2100 AC 05/25 PO 0812 Haloperidol 5 MG Q6-PRN PRN 05/24 1215 AC IM Haloperidol 5 MG TID 05/22 1400 DC 05/24 PO 0836 Haloperidol 5 MG TID PRN 05/22 1345 DC IM Heparin Sodium 5,000 UNIT Q8 05/22 1400 AC 05/25 (Porcine) SC 0607 Lactated Ringer's 1,000 ML Q13H 05/20 1045 05/25 IV 0131 Lorazepam 0.5 MG TID 05/26 1400 AC PO 05/27 2101 Lorazepam 1 MG TID 05/25 1400 AC PO 05/26 0901 Lorazepam 1.5 MG TID 05/24 1400 MI 05/25 PO 0812 Lorazepam 0.5 MG Q6-PRN PRN 05/24 1200 AC PO 05/31 1159 Lorazepam 2 MG TID 05/22 1400 DC 05/24 PO 0837 Lorazepam 0 Q1P PRN 05/22 0430 MI 05/23 IV 2307 Losartan Potassium 100 MG DAILY 05/18 09 05/25 PO 0811 Metoprolol Tartrate 75 MG BID 05/19 09 05/25 PO 0811 Morphine Sulfate 2 MG Q6P PRN 05/18 0300 MI 05/20 IV 0408 Ondansetron HCl 4 MG Q6P PRN 05/18 1645 05/20 IV 1553 Rosuvastatin Calcium 20 MG 1700 05/18 1700 05/24 PO 1817 Last 24 Hrs of Lab/Scooter Results Last 24 Hrs of Labs/Mics: Laboratory Tests 05/25/18 0620: Anion Gap 11, Estimated GFR > 60, BUN/Creatinine Ratio 11.7, Vitamin B12 779, Folate 10.0, CBC w Diff NO MAN DIFF REQ, RBC 3.79 L, MCV 94.6 H, MCH 31.8 H, MCHC 33.5, RDW 14.6 H, MPV 11.0 H, Gran % 63.8, Lymphocytes % 17.9 L, Monocytes % 14.9 H, Eosinophils % 2.9, Basophils % 0.5, Absolute Granulocytes 4.7, Absolute Lymphocytes 1.3, Absolute Monocytes 1.1 H, Absolute Eosinophils 0.2, Absolute Basophils 0 Assessment/Plan Assessment: Mr. Hernandez is a 47-year-old male with a past medical history of HTN CAD [place], h/o medicine induced pancreatitis 2 years ago, admitted for acute pancreatitis and suspected alcohol withdrawal. Pancreatitis has resolved. Patient no longer agitated. -Agitation -Holding opiates -We will discontinue patient's one-to-one. -Psych consult appreciated -thank you for the recommendations. Patient will be an Ativan taper which can be complete outpatient. Haldol will be discontinued. -Patient has been tolerating p.o. medication. -Pancreatitis -LR @ 75cc/hr. -HIDA is scheduled for today, will follow up on results. -Currently tolerating low-fat diet -Zofran PRN for nausea -RUQ U/S and CT neg -Remained afebrile overnight -Tachycardia -Cardio consult appreciated. Will continue metoprolol 75mg po BID. -Transaminitis Resolved -HTN -Amlodipine and Losartan. Patient continues to have elevated pressures, however is asymptomatic. We will considering adjust the dose. -DVT PPx: Heparin subq. Disposition Follow-up on social work consult as alcohol induced pancreatitis is still high on differential given patient withdrawal symptoms Problem List: 1. Pancreatitis Pain Ratin Pain Location: NA Pain Goal: Remain pain free Pain Plan: As needed Tomorrow's Labs & Rationales: Bob Majano 05/25/18 1125: Attending MD Review Statement Attending Statement Attending MD Statement: examined this patient, discuss w/resident/PA/INTERIOR DESIGN CONSULTANT, agreed w/resident/PA/INTERIOR DESIGN CONSULTANT, discussed with family, reviewed EMR data (avail), discussed with nursing, discussed with case mgmt, reviewed images, amended to note Attending Assessment/Plan: Pateint seen/examiend bedside. He denies any new complaints. sitter bedside. Denies any hallucinations to our team and nursing this morning. He is being actively managed for delirium tremens as per pyshc recommendations. Discontinue haldol and titrate ativan as per pyschiatry. Pancreatitis with improvement now, able to toelrate PO, no abdominal pain. Follow [facility]. Benzodiapine withdrawal and possible alcohol withdrawal. More histroy obtained from co worker who suggested occasional alcohol drinks. Continue current care.. Discontinue sitter and taper ativan for now.
[2018-05-25 07:42] VITALS: BP 150/108
[2018-05-25 08:03] LABS: ABSOLUTE BASOPHIL COUNT 0 /CUMM (0.0-0.2); ABSOLUTE EOSINOPHIL COUNT 0.2 /CUMM (0.0-0.7); ABSOLUTE GRANULOCYTE CT 4.7 /CUMM (1.4-6.5); ABSOLUTE LYMPH COUNT 1.3 /CUMM (1.2-3.4); ABSOLUTE MONOCYTE COUNT 1.1 /CUMM (0.10-0.60); BASOPHIL % 0.5 % (0.0-2.0); EOSINOPHIL % 2.9 % (0-5); GRANULOCYTE % 63.8 % (42.2-75.2); HEMATOCRIT 35.8 % (42-52); MEAN CORPUSCULAR HGB 31.8 PG (27.0-31.0); MEAN CORPUSCULAR HGB CONC 33.5 G/DL (33.0-37.0); MEAN CORPUSCULAR VOLUME 94.6 FL (80.0-94.0); RBC DISTRIBUTION WIDTH 14.6 % (11.5-14.5); RED BLOOD CELL CT 3.79 /CUMM (4.70-6.10); WHITE BLOOD CELL COUNT 7.3 /CUMM (4.8-10.8)
[2018-05-25 08:45] LABS: PLATELET COUNT 306 /CUMM (130-400)
--- NOTE | 2018-05-25 09:12 | PN- Psychiatry ---
Assessment/Plan Impression: Continues alert and fully oriented without fluctuating level of consciousness. No PRN meds in last 36 hours. Pt reports that he has been taking lorazepam from his PCP since his [place] in 2014. Initially intended for PRN use but using daily "and at night id I have trouble sleeping". Not interested in exploring alternative medication/therapy at this time. Again declines psychiatric referral. Suggestion: Pt has had haloperisol 5mg this morning. Discontinue. Discontinue benztropine Lorazepam taper ordered. Note this taper can be completed at home. It is not necessary to keep pt until taper complete. Ongoing management per medical team. Thank you for inviting us to participate in the cre of this patient. Psychiatry will sign off for now. Please do not hesitate to contact us if we can be of any further assistance. Subjective Subjective: Denies any symptms. In no distress Review of Systems: ALert and oriented x 3, god eye contact. Speech normal rate, rhythm, volume and tone. Mood "good", affect normal. Not suicidal or homicidal. Thought process normal in tempo, steram and form. No delusions or obsessions. Attention and concentration good. No perceptual abnormality. Impulse control good. Recent and remote memory intact. Insight fair. Judgement unimpaired. Objective Last 24 Hrs of Vital Signs/I&O Vital Signs Date Time Temp Pulse Resp B/P B/P Pulse O2 O2 Flow FiO2 Mean Ox Delivery Rate 05/25 0811 94 150/108 / 0810 94 150/108 / 0800 Room Air 05/25 0742 97.5 94 20 150/108 98 Room Air 05/25 0642 152/82 05/25 0201 80 170/110 /05 2202 97.6 84 19 150/90 98 07/05 1520 98.7 91 18 142/84 96 Room Air Intake & Output 05/25 1600 0706 0800 07/06 0000 Intake Total 720 120 Output Total Balance 720 120 Intake, IV 600 Intake, Oral 120 120 Patient 93.468 kg 93.242 kg Weight Weight Bed scale Measurement Method
[2018-05-25 12:00] VITALS: BP 142/88
--- NOTE | 2018-05-25 13:44 | NUCLEAR MEDICINE REPORT ---
EXAMINATION: BILIARY TRACT IMAGING STUDY WITH CCK ALTERNATIVE (SUPPLEMENT-STIMULATED CHOLESCINTIGRAPHY). CLINICAL INFORMATION: 47-year-old male with recurrent idiopathic pancreatitis. Right upper quadrant abdominal ultrasound showed no evidence of any cholelithiasis or acute cholecystitis. COMPARISON: Right upper quadrant abdominal ultrasound done on 05/18/2018. TECHNIQUE: Serial gamma scintillation camera images were obtained over the abdomen for a total observation period of 45 minutes following the intravenous administration of 5 mCi Tc-99m Choletec. FINDINGS: There is good concentration of activity in the liver by 5 minutes post injection. Biliary activity is visualized by 10 minutes. The gallbladder is well visualized by 15 minutes. Small bowel is well visualized by 20 minutes. At 45 minutes post radiopharmaceutical injection, following injection of 8 ounces of Ensure, an additional 60 minutes of images were obtained. There is good emptying of the gallbladder. By the end of the study there is good clearance of activity from the liver and visualization of diffuse small bowel activity. The calculated gallbladder ejection fraction is 97.5% (normal gallbladder ejection fraction is greater than 33%). Please note that due to non-availability of CCK, alternative methodology using a lactose-free Fatty-meal food supplement (8 ounces of Ensure) was used (Reference article: Journal of nuclear medicine 2003; 44:6057-0839). IMPRESSION: Visualization of the gallbladder is evidence of a patent cystic duct and strong evidence against the diagnosis of acute cholecystitis. The common bile duct is patent. Gallbladder emptying and ejection fraction are normal. Liver function appears normal.
[2018-05-25 14:58] VITALS: BP 120/90
[2018-05-25 21:14] VITALS: BP 152/98
--- NOTE | 2018-05-26 05:52 | PN- Housestaff ---
See Addendum Subjective Follow-up For: Pancreatitis Alcohol Withdrawal Subjective: Pt seen and examined at bedside. Denied any complaints overnight. States pain has resolved. Amenable to plan for possible discharge monday. Denies fevers/ chills/chest pain/SOB/vomiting/nausea Review of Systems Constitutional: Reports: see HPI. Objective Last 24 Hrs of Vital Signs/I&O Vital Signs Date Time Temp Pulse Resp B/P B/P Pulse O2 O2 Flow FiO2 Mean Ox Delivery Rate 05/26 620 98.1 76 18 146/94 99 Room Air 05/25 2114 98.1 88 18 152/98 99 Room Air 05/25 1458 98.3 91 20 120/90 97 Room Air / 1200 97.7 87 20 142/88 95 / 0811 94 150/108 05/25 0810 94 150/108 / 0800 Room Air 05/25 0742 97.5 94 20 150/108 98 Room Air Intake & Output 05/26 0800 05/26 0000 05/25 1600 Intake Total 600 620 Output Total Balance 600 620 Intake, IV 500 Intake, Oral 600 120 Patient 199 lb Weight Weight Bed scale Measurement Method Physical Exam General Appearance: Alert, Oriented X3, Cooperative, No Acute Distress Skin: No Breakdown Skin Temp/Moisture Exam: Warm/Dry Cardiovascular: Regular Rate, Normal S1, Normal S2 Lungs: Clear to Auscultation, Normal Air Movement Abdomen: Soft, No Tenderness Neurological: Sensation Intact Extremities: No Edema Current Medications: Current Medications Sig/Inge Start time Last Medication Dose Route Stop Time Status Admin Acetaminophen 650 MG Q6-PRN PRN 05/20 2200 AC 05/25 PO 221 Amlodipine Besylate 10 MG DAILY 05/25 900 AC 05/25 PO 0810 Artificial Tears 2 GTT Q2 PRN 05/19 0615 AC 05/25 OPH 1912 Aspirin 81 MG DAILY 05/18 09 AC 05/25 PO 0811 Benztropine Mesylate 0.5 MG BID 05/24 2100 AC 05/25 PO 221 Fenofibrate 48 MG DAILY 05/19 09 AC 05/25 PO 0810 Haloperidol 5 MG BID 05/24 2100 AC 05/25 PO 2216 Haloperidol 5 MG Q6-PRN PRN 05/24 1215 AC IM Heparin Sodium 5,000 UNIT Q8 05/22 1400 AC 05/26 (Porcine) SC 0527 Lactated Ringer's 1,000 ML Q13H 05/20 1045 DC 05/25 IV 0131 Lorazepam 0.5 MG TID 05/26 1400 AC PO 05/27 2101 Lorazepam 1 MG TID 05/25 1400 AC 05/25 PO 05/26 0901 2217 Lorazepam 1.5 MG TID 05/24 1400 DC 05/25 PO 0812 Lorazepam 0.5 MG Q6-PRN PRN 05/24 1200 AC PO 05/31 1159 Lorazepam 0 Q1P PRN 05/22 0430 DC 05/23 IV 2307 Losartan Potassium 100 MG DAILY 05/18 0900 AC 05/25 PO 0811 Metoprolol Tartrate 75 MG BID 05/19 0900 AC 05/25 PO 2217 Ondansetron HCl 4 MG Q6P PRN 05/18 1645 AC 05/20 IV 1553 Rosuvastatin Calcium 20 MG 1700 05/18 1700 AC 05/25 PO 1644 Sodium Chloride 2 SPRAY Q4P PRN 05/25 2115 AC NICOLAS Assessment/Plan Assessment: Mr. Hernandez is a 47-year-old male with a past medical history of HTN CAD [place], h/o medicine induced pancreatitis 2 years ago, admitted for acute pancreatitis and suspected alcohol withdrawal. Pancreatitis has resolved. Patient no longer agitated. Will keep patient until he finishes Ativan taper, completed Monday Night -Agitation -Holding opiates -One-to-one discontinued -Psych consult appreciated -thank you for the recommendations. Patient will be on Ativan taper which pt will complete and then be discharged. -Patient has been tolerating p.o. medication. -Pancreatitis -LR @ 75cc/hr. -Pt went for HIDA scan yesterday. IMPRESSION: Visualization of the gallbladder is evidence of a patent cystic duct and strong evidence against the diagnosis of acute cholecystitis. The common bile duct is patent. Gallbladder emptying and ejection fraction are normal. Liver function appears normal. -Currently tolerating low-fat diet -Zofran PRN for nausea -RUQ U/S and CT neg -Remained afebrile overnight -Tachycardia -Cardio consult appreciated. Will continue metoprolol 75mg po BID. -Transaminitis Resolved -HTN -Amlodipine and Losartan. Patient continues to have elevated pressures, however is asymptomatic. Likely outpt adjustment with close f/u PCP -DVT PPx: Heparin subq. Disposition Follow-up on social work consult as alcohol induced pancreatitis is still high on differential given patient withdrawal symptoms Problem List: 1. Pancreatitis Pain Ratin Pain Location: na Pain Goal: Remain pain free Pain Plan: prn Tomorrow's Labs & Rationales: na
[2018-05-26 06:20] VITALS: BP 146/94
[2018-05-26 08:00] VITALS: BP 148/80
[2018-05-26 12:00] VITALS: BP 142/74
[2018-05-26 14:20] VITALS: BP 134/76
[2018-05-26 14:22] VITALS: BP 130/78
[2018-05-26] MEDS ORDERED: ATIVAN0.5 M1 PO ×2 (17:52→19:28)
[2018-05-26 18:38] VITALS: BP 134/90
== END 2018-05-26 19:55 | DRG 439 ==
LOC: ERH 20:45 → 2NB 23:38 → ERHI 23:38 → 2NB 23:38 → CANRESERV 05-18 00:16 → ENRESERV 05-18 00:16 → 2NB 05-18 01:33 → 1NO 05-21 14:44 → 2NB 05-25 07:19 → ENPENDDIS 05-26 18:18 → 2NB 05-26 19:55
PROVIDERS: Internal Medicine; Physician Assistant
DX: K85.30 Drug induced acute pancreatitis without necrosis or infection (principal); E87.2 Acidosis; R18.8 Other ascites; F10.231 Alcohol dependence with withdrawal delirium; T46.6X5A Adverse effect of antihyperlipidemic and antiarteriosclerotic drugs, initial encounter; I10 Essential (primary) hypertension; I25.2 Old myocardial infarction; I25.10 Atherosclerotic heart disease of native coronary artery without angina pectoris; Z95.5 Presence of coronary angioplasty implant and graft; M46.92 Unspecified inflammatory spondylopathy, cervical region; Z87.891 Personal history of nicotine dependence; E86.0 Dehydration; R74.0 Nonspecific elevation of levels of transaminase and lactic acid dehydrogenase [LDH]; N28.89 Other specified disorders of kidney and ureter; E78.5 Hyperlipidemia, unspecified; E78.1 Pure hyperglyceridemia; I95.9 Hypotension, unspecified; H53.8 Other visual disturbances; R00.0 Tachycardia, unspecified; R44.1 Visual hallucinations; R41.0 Disorientation, unspecified
CPT/HCPCS: 1NP; 2NBP; 2NBSP; ERO; 36415; 36592; 71045; 74177; 78226; 82436; 87040; 93005; 93010; 96361; 96374; 96375; 96376; A9537; G0480; J0515; J1200; J1630; J1644; J1885; J2060; J2405; J2550; J2765; J3101; J3490; J7120